=== PATIENT | female | born 1955 | race Caucasian/White ===

== ENCOUNTER → 2016-10-13 | Outpatient (CLI) | payer OTHER ==
[~2016-10-13] MED LIST: CALC-343 PO; OXYC1TAB3 PO; PRM/3 PO
--- NOTE | 2016-10-13 10:16 | DIAGNOSTIC IMAGING REPORT ---
RIGHT THIGH ULTRASOUND CLINICAL HISTORY: Right thigh mass. COMPARISON STUDY: None. FINDINGS: Within the right medial thigh at the patient's palpable abnormality there is a 3.3 x 2.6 x 2.4 cm solid and cystic circumscribed mass. This appears to be intramuscular. The proximal and distal ends of the lesion are surrounded by fat. 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 No surrounding fluid collections. IMPRESSION: A 3.3 x 2.8 x 2.4 cm intramuscular mass within the right medial thigh. This favors a peripheral nerve sheath tumor. However, a sarcoma could also have a similar appearance. Complete surgical excision is recommended. Electronically signed by: Goarn Horn M.D. 10/13/2016 10:14 AM Dictated Date/Time: 10/13/2016 10:08 AM
== END | disposition home or self-care (01) ==
LOC: C.ULTR 09:39
PROVIDERS: ATTEND Plastic Surgery
DX: M79.9 Soft tissue disorder, unspecified (principal)

== ENCOUNTER → 2016-10-22 | Outpatient (CLI) | payer OTHER ==
[~2016-10-22] MED LIST changes: +GADAVIST IV PRN
--- NOTE | 2016-10-22 12:10 | DIAGNOSTIC IMAGING REPORT ---
MRI RIGHT THIGH COMBO CLINICAL HISTORY: Palpable lump in the right thigh of 4 years duration. COMPARISON STUDY: Ultrasound of the right thigh dated 10/13/2016. TECHNIQUE: MRI of the right thigh is performed utilizing various T1 and T2-weighted sequences in the axial, sagittal, and coronal planes. Contrast-enhanced sequences are acquired following the IV administration of 5.5 cc of Gadavist. There is a 3.9 x 2.9 x 2.5 cm T1 hypointense, T2 hyperintense, and heterogeneously enhancing mass lesion identified in the medial mid thigh. This is superficial and medial to the vastus medialis muscle. No additional similar-appearing mass lesions are identified. There is no right pelvic sidewall or right inguinal lymphadenopathy. The musculature of the thigh is normal in bulk and signal intensity. The femur is normal in appearance. The femoral vessels are patent. IMPRESSION: There is a 3.9 cm mass lesion in the medial right thigh as detailed above. 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 Complete surgical resection is advised. Electronically signed by: Jemal Moon M.D. 10/22/2016 12:09 PM Dictated Date/Time: 10/22/2016 12:03 PM
== END | disposition home or self-care (01) ==
LOC: C.MRI 09:42
PROVIDERS: ATTEND Plastic Surgery
DX: M79.9 Soft tissue disorder, unspecified (principal)

== ENCOUNTER → 2016-10-23 | Outpatient (CLI) | payer OTHER ==
[~2016-10-23] MED LIST changes: -GADAVIST IV PRN
[2016-10-23 13:33] LABS: BASO % 0.6 %; BASO ABS # 0.03 K/uL (0-0.2); COMPLETE YES; EOS % 2.7 %; LYMPH ABS # 1.72 K/uL (1.2-3.4); MEAN CELL VOLUME 86.6 fL (80-100); MEAN CORPUSCULAR HEMOGLOBIN 30.5 pg (25-34); MEAN CORPUSCULAR HGB CONC 35.3 g/dl (32-36); MEAN PLATELET VOLUME 12.1 fL (7.4-10.4); NEUT % 55.7 %; PLATELET COUNT 236 K/uL (130-400); RED BLOOD COUNT 4.62 M/uL (4.2-5.4); WHITE BLOOD COUNT 4.78 K/uL (4.8-10.8)
[2016-10-23 14:23] LABS: ALB/GLOB RATIO 1.3 (0.9-2); ALKALINE PHOSPHATASE 59 U/L (45-117); ALT/SGPT 23 U/L (12-78); AST/SGOT 20 U/L (15-37); BLOOD UREA NITROGEN 17 mg/dl (7-18); BUN/CREATININE RATIO 25.7 (10-20); CALCIUM 9.1 mg/dl (8.5-10.1); CARBON DIOXIDE 29 mmol/L (21-32); CHLORIDE 107 mmol/L (98-107); CHOLESTEROL 205 mg/dl (0-200); CREATININE 0.68 mg/dl (0.60-1.20); GLUCOSE 82 mg/dl (70-99); HDL CHOLESTEROL 101 mg/dl; LDL CHOLESTEROL CALCULATED 94 mg/dl; POTASSIUM 4.1 mmol/L (3.5-5.1); SODIUM 143 mmol/L (136-145); TRIGLYCERIDES 50 mg/dl (0-150); VERY LOW DENSITY LIPOPROT CALC 10 mg/dl
== END | disposition home or self-care (01) ==
LOC: C.LABSPEC 12:50
PROVIDERS: ATTEND Internal Medicine
DX: E78.5 Hyperlipidemia, unspecified (principal); R53.83 Other fatigue; E55.9 Vitamin D deficiency, unspecified

== ENCOUNTER → 2016-10-26 | Outpatient (CLI) | payer OTHER ==
--- NOTE | 2016-10-26 10:26 | DIAGNOSTIC IMAGING REPORT ---
Ultrasound right lower leg RIGHT EXTREMITY NONVASCULAR LIMITED CLINICAL HISTORY: R LOWER Leg, mass UPPER THIRD Right mass. Nodule. TECHNIQUE: Ultrasound COMPARISON STUDY: None FINDINGS: Correlation is made with MRI as well as ultrasound evaluation of the right thigh. Current evaluation of the right lower leg shows no well-defined mass or collection. IMPRESSION: No evidence for well-defined mass or collection specifically involving the right lower leg and calf Electronically signed by: Brady Dean M.D. 10/26/2016 10:25 AM Dictated Date/Time: 10/26/2016 10:23 AM
== END | disposition home or self-care (01) ==
LOC: C.ULTR 09:36
PROVIDERS: ATTEND Internal Medicine
DX: R22.41 Localized swelling, mass and lump, right lower limb (principal)

== ENCOUNTER → 2017-04-27 | Outpatient (CLI) | payer OTHER ==
[~2017-04-27] MED LIST changes: -OXYC1TAB3 PO
== END | disposition home or self-care (01) ==
LOC: C.LABSPEC 16:57 → C.PATHSPEC 16:58
PROVIDERS: ATTEND Nurse Practitioner Adult Health
DX: R31.0 Gross hematuria (principal)

== ENCOUNTER → 2017-05-03 | Outpatient (CLI) | payer OTHER ==
[~2017-05-03] MED LIST changes: +OPTIRAY 320 IV PRN
--- NOTE | 2017-05-03 08:53 | DIAGNOSTIC IMAGING REPORT ---
CT ABD/PELVIS COMBO CLINICAL HISTORY: Gross hematuria COMPARISON STUDY: 03/18/2016 TECHNIQUE: Unenhanced images were obtained through the abdomen and pelvis. The patient was injected with 50 cc of Optiray 320. After 5 minute delay, the patient is rescanned in a dynamic helical fashion during intravenous administration of additional 70 cc Optiray 320 A dose lowering technique was utilized adhering to the principles of ALARA. CT DOSE: 783.70 mGycm FINDINGS: Lower chest: There are mild dependent atelectatic changes Liver: The contrast-enhanced liver is normal in size, contour, and attenuation. There is no intrahepatic biliary ductal dilatation. The hepatic veins and portal veins are patent. Gallbladder: Likely surgically absent Spleen: Normal in size and attenuation. Pancreas: Unremarkable. Adrenal glands: Unremarkable. Kidneys: There are in numerable bilateral intrarenal calculi. No ureteral or bladder calculi are visualized. There is a 6 mm upper pole right renal cyst. There is a 9 mm lower pole hyperdense right renal cyst. There is a 5 mm left renal cyst. No collecting system lesions are visualized. There is a small "kink within the proximal right ureter which is felt to explain the mild proximal right ureteral irregularity. Bowel: There are no transition zones indicate bowel obstruction. There is colonic diverticulosis. There are no acute peridiverticular inflammatory changes. The appendix appears normal. Peritoneum: There is no intraperitoneal free air or abdominal ascites. Vasculature: The abdominal aorta is normal in course and caliber. Adenopathy: None. Pelvic viscera: The uterus appears surgically absent Skeletal structures: No destructive osseous lesions are seen. IMPRESSION: 1. Bilateral nephrolithiasis. No ureteral or bladder calculi identified 2. No uroepithelial lesions identified 3. Subcentimeter renal cysts including a 9 mm lower pole hyperdense right renal cyst Electronically signed by: Tommy Rodriguez M.D. 05/03/2017 8:52 AM Dictated Date/Time: 05/03/2017 8:42 AM
== END | disposition home or self-care (01) ==
LOC: C.CTS 08:11
PROVIDERS: ATTEND Nurse Practitioner Adult Health
DX: R31.0 Gross hematuria (principal)

== ENCOUNTER → 2017-05-14 | Outpatient (CLI) | payer OTHER ==
[~2017-05-14] MED LIST changes: -OPTIRAY 320 IV PRN
== END | disposition home or self-care (01) ==
LOC: C.LAB1850 12:17
PROVIDERS: ATTEND Internal Medicine Nephrology
DX: N20.0 Calculus of kidney (principal)

== ENCOUNTER → 2017-08-10 | Outpatient (CLI) | payer OTHER ==
--- NOTE | 2017-08-10 15:11 | MAMMOGRAPHY REPORT ---
BILATERAL DIGITAL SCREENING MAMMOGRAM TOMOSYNTHESIS WITH CAD: 08/10/2017 CLINICAL HISTORY: Routine screening. Patient has no complaints. TECHNIQUE: Breast tomosynthesis in addition to standard 2D mammography was performed. Current study was also evaluated with a Computer Aided Detection (CAD) system. COMPARISON: Comparison is made to exams dated: 08/07/2016 mammogram, 08/05/2015 mammogram, 08/02/2014 mammogram, 08/01/2013 mammogram, 07/18/2012 mammogram, and 07/15/2011 mammogram - [facility]. BREAST COMPOSITION: There are scattered areas of fibroglandular density in both breasts. FINDINGS: There are is a stable benign grouping of microcalcifications in the 12:00 anterior right b reast, which appears similar on all available prior mammograms dating back to at least 04/19/2008, th erefore likely benign. No new suspicious mass, architectural distortion or cluster of microcalcificat ions is seen. IMPRESSION: ACR BI-RADS CATEGORY 2: BENIGN There is no mammographic evidence of malignancy. A 1 year screening mammogram is recommended. The pa tient will receive written notification of the results. Approximately 10% of breast cancers are not detected with mammography. A negative mammographic report should not delay biopsy if a clinically suggestive mass is present. Bee Mai M.D. ay/:08/10/2017 11:05:41 [employer]: Anabella TAYLOR)(Andrew)(BD), [facility] letter sent: Normal 1/2 BI-RADS Code: ACR BI-RADS Category 2: Benign
== END | disposition home or self-care (01) ==
LOC: C.MAMM 09:00
PROVIDERS: ATTEND Obstetrics & Gynecology
DX: Z12.31 Encounter for screening mammogram for malignant neoplasm of breast (principal)

== ENCOUNTER → 2017-08-23 | Outpatient (CLI) | payer OTHER ==
--- NOTE | 2017-08-23 17:50 | DIAGNOSTIC IMAGING REPORT ---
KUB CLINICAL HISTORY: 62 years-old Female presenting with GROSS HEMATURIA. TECHNIQUE: Single supine view of the abdomen was obtained. COMPARISON: CT from 05/03/2017 and plain radiograph from 09/22/2016. FINDINGS: Moderate stool burden primarily in the left colon. No bowel obstruction. No gross pneumoperitoneum. A metallic foreign body again projects over the left mid abdomen, better localized on prior CT. Allowing for the presence of gas and stool, calcifications project over the kidneys bilaterally consistent with nephrolithiasis. These are similar in distribution to the prior exam. No calcifications along the courses of the ureters are apparent. Osseous structures normal. IMPRESSION: 1. Bilateral nephrolithiasis similar to prior exam. No radiographic evidence of ureteral calculi. Electronically signed by: Edward Zhang M.D. 08/23/2017 5:49 PM Dictated Date/Time: 08/23/2017 5:47 PM
== END | disposition home or self-care (01) ==
LOC: C.RAD 17:24
PROVIDERS: ATTEND Nurse Practitioner Adult Health
DX: R31.0 Gross hematuria (principal); N20.0 Calculus of kidney

== ENCOUNTER → 2017-10-25 | Outpatient (CLI) | payer OTHER ==
--- NOTE | 2017-10-25 09:07 | DIAGNOSTIC IMAGING REPORT ---
MRI OF THE LEFT KNEE WITHOUT CONTRAST CLINICAL HISTORY: Anterior medial left knee pain. COMPARISON STUDY: Left tibia and fibula radiographs September 19, 2013. TECHNIQUE: Utilizing a 1.5 [place] magnet and dedicated coil, multiplanar, multiecho imaging of the left knee was performed without intravenous or intraarticular contrast. FINDINGS: Alignment of the left knee is anatomic. Extensor mechanism is intact. The cruciate and collateral ligaments are intact. There is no lateral meniscal tear. There is intrasubstance signal within the posterior horn and body of the medial meniscus. There is also oblique linear signal within the body and posterior horn of the medial meniscus which likely extends to the tibial articular surface. This suggests an oblique medial meniscal tear. No mass or fluid collection is identified. There is no suspicious marrow replacement. Note is made of moderate chondrosis of the medial trochlear cartilage. There is mild to moderate chondrosis of the patellar cartilage. Otherwise, minimal chondrosis within the medial and lateral compartments is noted. IMPRESSION: 1. Findings suggestive of an oblique tear within the body and posterior horn the medial meniscus. The majority of the signal abnormality is intrasubstance however probable extension to tibial articular surface favors an associated meniscal tear. 2. 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 3. Intact cruciate and collateral ligaments. Electronically signed by: Pan Chauhan M.D. 10/25/2017 9:06 AM Dictated Date/Time: 10/25/2017 8:56 AM
== END | disposition home or self-care (01) ==
LOC: C.MRIBC 08:06
PROVIDERS: ATTEND Orthopaedic Surgery
DX: M25.562 Pain in left knee (principal); M22.2X2 Patellofemoral disorders, left knee

== ENCOUNTER 2018-01-29 09:42 | Emergency (ER) | payer OTHER ==
[~2018-01-29] VITALS: Ht 152.4 cm; Wt 56.0 kg
[2018-01-29 09:45] VITALS: TEMP 37.4; Ht 152.4 cm; Wt 56.0 kg
--- NOTE | 2018-01-29 10:10 | EMERGENCY ROOM VISIT NOTE ---
History Report prepared by April: Kj Baird Under the Supervision of: Dr. Sanford Garrett D.O. First contact with patient: 10:03 Chief Complaint: FLU LIKE SX Stated Complaint: FEVER,BODY ACHES History of Present Illness The patient is a 62 year old female who presents to the Emergency Room with complaints of worsening flu-like symptoms for the past 3 days. Patient states that she has a fever, productive cough, body aching, chills, sneezing, and post- nasal drip. She states that her fever has been intermittent with a temperature last night of 102.9. Patient states that she has used Tylenol and Advil to try and relieve the symptoms. She states her last dose of Tylenol was last night. She denies urinary symptoms, nausea, vomiting, rash, chest pain, leg pain, or leg swelling. Patient denies using any current medications. Source of History: patient Onset: 3 days ago Position: other (Global) Timing: worsening Modifying Factors (Relieving): tylenol, other (Advil) Associated Symptoms: + fevers, + chills, + cough (Productive), No chest pain , No nausea, No vomiting, No urinary symptoms, No rash Note: Patient has body aching and post-nasal drip. Review of Systems See HPI for pertinent positives & negatives. A total of 10 systems reviewed and were otherwise negative. Past Medical & Surgical Medical Problems: (1) Cystic Kidney Disease, Unspecified (2) Disc displacement, lumbar (3) Diverticulosis Colon (W/O Ment Of Hemorrhage) (4) Kidney stones (5) Laceration of lower extremity Family History Kidney stones Social History Smoking Status: Never Smoker Alcohol Use: none Drug Use: none Marital Status: Housing Status: lives with significant other Occupation Status: employed Current/Historical Medications Scheduled Estrogens, Conjugated (Premarin), 0.3 MG PO HS Oseltamivir (Tamiflu), 75 MG PO BID Allergies Coded Allergies: Codeine (Verified Adverse Reaction, Unknown, GI PAIN, 01/29/18) Methadone (Verified Adverse Reaction, Unknown, "UNSURE, COULD NOT WALK", ) Physical Exam Vital Signs Date Time Temp Pulse Resp B/P (MAP) Pulse Ox O2 Delivery O2 Flow Rate FiO2 01/29/18 11:27 80 16 138/79 99 01/29/18 09:45 37.4 86 20 149/86 98 Room Air Physical Exam GENERAL: Patient is awake, alert, and in no acute distress. Patient is resting comfortably and showing no signs of anxiety EYES: The conjunctivae are clear. The pupils are round and reactive. EARS, NOSE, MOUTH AND THROAT: Minimal clear rhinorrhea noted bilaterally. Post- oropharynx is clear. The nose is without any evidence of any deformity. Mucous membranes are moist tongue is midline. NECK: The neck is nontender and supple. RESPIRATORY: Lungs sound scattered with minimal rhonchi noted. No tachypnea or conversational dyspnea noted. CARDIOVASCULAR: Regular rate and rhythm noted there no murmurs rubs or gallops normal S1 normal S2 GASTROINTESTINAL: The abdomen is soft. Bowel sounds are present in all quadrants. Abdomen is nontender MUSCULOSKELETAL/EXTREMITIES: There is no evidence of gross deformity full range of motion is noted in the hips and shoulders SKIN: There is no obvious evidence of any rash. There are no petechiae, pallor or cyanosis noted. NEUROLOGIC: Patient is awake alert and oriented x3. Medical Decision & Procedures ER Provider Diagnostic Interpretation: Radiology results as stated below per my review and radiologist interpretation: CHEST 2 VIEWS ROUTINE CLINICAL HISTORY: 62 years-old Female presenting with cough. TECHNIQUE: PA and lateral views of the chest were obtained. COMPARISON: 03/24/2016. FINDINGS: Cardiomediastinal silhouette normal. Lungs and pleural spaces clear. Osseous structures normal. Upper abdomen normal. IMPRESSION: 1. No acute cardiopulmonary disease. Electronically signed by: Edward Zhang M.D. 01/29/2018 10:36 AM Laboratory Results Test 01/29/18 10:15 Influenza Type A Antigen Neg for Influ A (NEG) Influenza Type B Antigen POS for Influ B (NEG) Laboratory results per my review. ED Course 1004: The patient was evaluated in room B8. A complete history and physical examination were performed. 1043: I reassessed the patient and updated her on her findings. 1210: Upon reevaluation, the patient is resting comfortably. I discussed the results and treatment plan with her. She verbalized agreement of the treatment plan. She was discharged home. Medical Decision Prior records/ancillary studies reviewed. Triage Nursing notes reviewed. The patient's history was concerning for respiratory difficulties. Differential diagnosis: Etiologies such as infections, reactive airway disease, pneumonia, pneumothorax , COPD, CHF, cardiac ischemia, pulmonary embolism, musculoskeletal, gastrointestinal, as well as others were entertained. The patient is a 62-year-old female who presented to the emergency department for an evaluation of rhinorrhea and flulike symptoms. The patient had a cough. Her chest x-ray did not reveal any acute abnormality. She was found to have a positive flu swab. She was started on Tamiflu and encouraged to continue using Motrin and Tylenol for pain and drink plenty of clear liquids. Otherwise she was encouraged to call her family doctor to schedule a follow-up appointment but return to the emergency department immediately if symptoms change worsen or the need arises. Medication Reconcilliation Current Medication List: was personally reviewed by me Blood Pressure Screening Patient's blood pressure: Elevated blood pressure Blood pressure disposition: Elevated BP felt to be situational Impression Primary Impression: Influenza Scribe Attestation The scribe's documentation has been prepared under my direction and personally reviewed by me in its entirety. I confirm that the note above accurately reflects all work, treatment, procedures, and medical decision making performed by me. Departure Information Dispostion Home / Self-Care Prescriptions Oseltamivir (Tamiflu) 75 Mg Cap 75 MG PO BID, #10 CAP Prov: Sanford Garrett, DO 01/29/18 Referrals No Doctor, Assigned (PCP) Forms HOME CARE DOCUMENTATION FORM, IMPORTANT VISIT INFORMATION Patient Instructions ED Flu, My [facility] Additional Instructions Continue all medications as prescribed. Drink plenty clear liquids. Continue using Motrin and Tylenol for fever and body aches.
--- NOTE | 2018-01-29 10:38 | DIAGNOSTIC IMAGING REPORT ---
CHEST 2 VIEWS ROUTINE CLINICAL HISTORY: 62 years-old Female presenting with cough. TECHNIQUE: PA and lateral views of the chest were obtained. COMPARISON: 03/24/2016. FINDINGS: Cardiomediastinal silhouette normal. Lungs and pleural spaces clear. Osseous structures normal. Upper abdomen normal. IMPRESSION: 1. No acute cardiopulmonary disease. Electronically signed by: Edward Zhang M.D. 01/29/2018 10:36 AM Dictated Date/Time: 01/29/2018 10:36 AM
[2018-01-29 10:46] LABS: INFLUENZA B ANTIGEN POS for Influ B (NEG)
[2018-01-29] MEDS ORDERED: OSEL75CA12 PO (11:01)
[2018-01-29 11:27] VITALS: BP 138/79; PULSE 80; O2SAT 99
== END 2018-01-29 11:28 | disposition home or self-care (01) ==
LOC: C.EDB 09:43
DX: J11.1 Influenza due to unidentified influenza virus with other respiratory manifestations (principal); R03.0 Elevated blood-pressure reading, without diagnosis of hypertension; Z79.3 Long term (current) use of hormonal contraceptives; Z88.6 Allergy status to analgesic agent

== ENCOUNTER → 2018-04-29 | Outpatient (CLI) | payer OTHER ==
[~2018-04-29] MED LIST changes: -CALC-343 PO; +OSEL75CA12 PO
--- NOTE | 2018-04-29 17:30 | DIAGNOSTIC IMAGING REPORT ---
KUB CLINICAL HISTORY: Nephrolithiasis. FINDINGS: 2 AP supine abdominal radiographs are compared to study dated 08/23/2017 and correlated with abdominal CT dated 05/03/2017. There is a nonobstructed abdominal bowel gas pattern. Mild colonic fecal retention is observed. A linear metallic foreign body is again seen in the left mid abdomen. There are numerous tiny nonobstructing renal calculi seen bilaterally. These measure up to 3 mm. There is no radiographic evidence of ureterolithiasis. The skeletal structures are osteopenic. Mild degenerative change is noted in the lumbar spine. IMPRESSION: 1. There are numerous small bilateral nonobstructing renal calculi, not appreciably changed from previous. 2. A linear metallic foreign body is again noted in the left mid abdomen. Electronically signed by: Jemal Moon M.D. 04/29/2018 5:29 PM Dictated Date/Time: 04/29/2018 5:27 PM
== END | disposition home or self-care (01) ==
LOC: C.RAD 16:42
PROVIDERS: ATTEND Urology
DX: N20.0 Calculus of kidney (principal)

== ENCOUNTER 2019-01-24 19:52 | Inpatient (IN) ==
[2019-01-24] MEDS ORDERED: VANCOMYCIN CONSULT ACTIVE PRN (20:28)
[2019-01-24] MEDS ORDERED: VANCOMYCIN HCL 1,500 MG in SODIUM CHLORIDE 0.9% 500 ML IV ONE (20:28)
[2019-01-24] MEDS ORDERED: AMPICILLIN/SULBACTAM SOD 3,000 MG in 0.9 % SODIUM CHLORIDE 100 ML IV STA (20:28)
[2019-01-24] MEDS ORDERED: SODIUM CHLORIDE 0.9% 1000ML 1,000 ML IV SCH (20:30)
[2019-01-24 21:02] LABS: Basophils # (auto) 0.03 K/uL (0-0.2); Basophils % (auto) 0.4 %; Eosinophils # (auto) 0.16 K/uL (0-0.5); Eosinophils % (auto) 1.9 %; Hematocrit (blood only) 36.7 % (37-47); Hemoglobin 13.6 g/dL (12.0-16.0); Immature Granulocytes # (auto) 0.01 K/uL (0.00-0.02); Immature Granulocytes % (auto) 0.1 %; Lymphocytes # (auto) 1.71 K/uL (1.2-3.4); Lymphocytes % (auto) 20.7 %; Mean Corpuscular Hgb Conc 37.1 g/dL (32-36); Mean Corpuscular Volume 85.5 fL (80-100); Mean Platelet Volume 11.2 fL (7.4-10.4); Monocytes # (auto) 0.52 K/uL (0.11-0.59); Monocytes % (auto) 6.3 %; Neutrophils # (auto) 5.82 K/uL (1.4-6.5); Neutrophils % (auto) 70.6 %; Platelet Count 229 K/uL (130-400); RDW Coefficient of Variation 12.9 % (11.5-14.5); Red Blood Count 4.29 M/uL (4.2-5.4); White Blood Count 8.25 K/uL (4.8-10.8)
[2019-01-24 21:17] LABS: Calcium 8.8 mg/dl (8.5-10.1); Creatinine Clr Calc Pharmacy 75.3 ml/min; Est GFR (African American) 112.3; Est GFR (Non-African American) 96.9; Potassium 3.6 mmol/L (3.5-5.1)
--- OUTSIDE RECORDS SUMMARY | 2019-01-24 22:08 | External Medical Summary | Continuity of Care Document ---
:1955 Author Name Warren Harper, Provider Address Unavailable Unavailable , Care Team Providers Name Role Phone Ger Harper, Jordyn Kurtz Unavailable [email or web address] Marcy Harper Unavailable [email or web address] Unavailable Unavailable Unavailable Unavailable Unavailable Problems Menopausal symptoms (627.2) (N95.1) Migraines (346.90) (G43.909) Colicky epigastric pain (789.06) (R10.13) Nephrolithiasis (592.0) (N20.0) Encounter for routine gynecological examination (V72.31) (Z0 1.419) Allergies and Adverse Reactions codeine (Allergy) Reaction: Nausea Tigan (Allergy) Medications Premarin 0.3 MG Oral Tablet; TAKE 1 TABLET DAILY DI RECTED. Leroy Cyr Start: 28-Aug-2015 Quantity: 90 Refills: 3 TheraLith XR TABS; TAKE 2 TABLET Twice daily Refills: 0 Vitamin D 2000 UNIT Oral Tablet; Take 1 tablet daily Refills: 0 hydroCHLOROthiazide 25 MG Oral Tablet; TAKE 1 TABLET D AILY. Leroy Vidal Amy Start: 18-Jul-2018 Quantity: 30 Refills: 11 Procedures Renal Panel Date: 11-Jan-2019 History of Total Abdominal Hysterectomy Status: Completed History of Hernia Repair Status: Complet ed History of Wedge Resection Of Lung Statu s: Completed History of Salpingectomy Status: Complet ed History of Dilation And Curettage Status : Completed History of Cholecystectomy Status: Compl eted History of Colonoscopy (Fiberoptic) Sigmoid Colon Status: Completed History of Lymphatic Surgery Status: Com pleted History of Salpingo-oophorectomy Bilateral Status: Completed History of Back Surgery Status: Complete d History of Hysterectomy Status: Complete d History of Renal Lithotripsy Status: Com pleted Immunizations DTaP On: 08-Sep-2013 Influenza On: 09-Jul-2014 Family History Mother Family history of diabetes mellitus (V18.0) (Z83.3) Status: Active Family history of hypertension (V17.49) (Z82.49) Status: Act nathanael Family history of hypercholesterolemia (V18.19) (Z83.42) Sta tus: Active Family history of kidney stones (V18.69) (Z84.1) Status: Belia huffman Father Family history of diabetes mellitus (V18.0) (Z83.3) Status: Active Family history of cardiac disorder (V17.49) (Z82.49) Status: Active FH: kidney cancer (V16.51) (Z80.51) Status: Active Family history of kidney stones (V18.69) (Z84.1) Status: Belia huffman Grandfather Family history of diabetes mellitus (V18.0) (Z83.3) Status: Active Social History - Smoking Status Never smoker Plan of Treatment Planned Encounters Appointment; Amy Vidal M.D. Start: 15-Jan-2020 10:45 Request Planned Observations Planned Goals not documented Results No Known Results Results not documented Vital Signs 11-Jan-2019 13:57 Systolic 122 mm[Hg] Comments: Location: RUE; Position: Sitting Diastolic 78 mm[Hg] Comments: Location: RUE; Position: Sitting Weight 123.375 lb BSA Calculated 1.52 m2 BMI Calculated 24.1 kg/m2 Heart Rate 70 /min Comments: Location: R Radial; Quality: Normal Encounters Appointment; Amy Vidal M.D. 11-Jan-2019 13:45 Encounter Diagnosis: Problem not documented Appointment; Amy Vidal M.D. 18-Jul-2018 10:45 Encounter Diagnosis: Problem not documented Appointment; Ryder Taveras M.D. 03-May-2018 9:45 Encounter Diagnosis: Problem not documented Appointment; Jordyn Cyr M.D. 22-Nov-2017 10:00 Encounter Diagnosis: Problem not documented Appointment; Amy Vidal M.D. 14-Jul-2017 9:15 Encounter Diagnosis: Problem not documented Appointment; Amy Vidal M.D. 14-May-2017 11:15 Encounter Diagnosis: Problem not documented Appointment; Ryder Taveras M.D. 11-May-2017 9:30 Encounter Diagnosis: Problem not documented Appointment; Urology, [facility] 7 11-May-2017 9:20 Encounter Diagnosis: Problem not documented Appointment; Vianca Rodriguez CRNP 27-Apr-2017 15:00 Encounter Diagnosis: Problem not documented Appointment; Amy Vidal M.D. 15-Jan-2020 10:45 Encounter Diagnosis: Problem not documented
--- NOTE | 2019-01-25 00:48 | History & Physical Report ---
Date of Service January 25, 2019 Assessment & Plan (1) Wound infection, posttraumatic: 63 yo F with recent history of left hand laceration s/p suturing on 01/14 presenting with pain, swelling, purulent green discharge from wound found on exam, afebrile with no leukocytosis on arrival. Admit to Med surg - no evidence of systemic infection - Given Vancomycin, Unasyn in ED - Given green purulent discharge per ED, will also cover for pseudomonas - Start Vancomycin, Cefepime on admission - given post-traumatic numbness tingling of the 2nd 3rd digits, will order MRI hand for further evaluation (2) Laceration: as above (3) Hypertension: BP controlled Continue HCTZ History of Present Illness Chief Complaint: Wound infection Primary Care Provider: Nicolas Bhat MD 63 yo F with HTN, GERD recently admitted for Hand laceration 01/14 to left hand with a knife from cutting [place]. Patient received 5-0 nylon sutures x 3 in addition to Adacel injection. She was not sent home on antibiotics. Patient presents today with suspected infection wound. 2 days ago, patient reports worsening pain, swelling. She placed on ice. Patient had not reported drainage from wound prior to arrival. She does report numbness, tingling of the the left index finger and middle finger. She also denies fever, chills. In the ED, patient was afebrile without leukocytosis. While suture was being removed, green purulent drainage was observed. She was given IV NS bolus, Vancomycin and Unasyn in ED. Currently she denies pain, She does report numbness tingling in left index and middle finger. Allergies Allergy/AdvReac Type Severity Reaction Status Date / Time methadone AdvReac Severe "UNSURE, Verified 01/24/19 21:06 COULD NOT WALK" codeine AdvReac Intermediate GI PAIN Verified 01/24/19 21:06 Home Medications Home Medications Medication Instructions Recorded Confirmed Type Unknown Anti Inflammatory Med 1 dose PO DIRECTED 01/24/19 01/24/19 History cholecalciferol (vitamin D3) 2,000 unit PO DAILY 01/24/19 01/24/19 History [Vitamin D3] conjugated estrogens [Premarin] 0.3 mg PO HS 01/24/19 01/24/19 History hydrochlorothiazide 25 mg PO DAILY 04/30/19 04/30/19 History vit B6-mag cit,oxid-potass cit 2 tab PO BID 01/24/19 01/24/19 History [Theralith XR] Past Med/Surg History Medical History Laceration (Acute) Disc displacement, lumbar (Chronic) Laceration of lower extremity (Resolved) Kidney stone (Acute) Kidney stones Influenza (Resolved) Left ureteral calculus (Acute) Family History Other No pertinent family history in first degree relatives Social History Preferred Language: Yakut Communication Ability: Effective 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 HEAD: normocephalic. EYES: PERRL, EOMI.vision is grossly intact. EARS: hearing grossly intact. NOSE: No nasal discharge. NECK: Neck supple, non-tender without lymphadenopathy CARDIAC: Normal S1 and S2. No S3, S4 or murmurs. Rhythm is regular LUNGS: Clear to auscultation and percussion without rales, rhonchi, wheezing or diminished breath sounds. ABDOMEN: Positive bowel sounds. Soft, nondistended, nontender. No guarding or rebound. No masses. MUSKULOSKELETAL: Left hand, palmar 1-1.5 cm laceration, wound s/p suture removal with some purruelnt discharge, surrounding swelling, no erythema normal client leader strength, + dec;d sensation 2nd digit, ulnar portion of 3rd digit LOWER EXTREMITY: no edema NEUROLOGICAL: CN II-XII intact grossly . moves extremities Results & Data Vital Signs (Past 12 Hours) Vital Signs Temp Pulse Pulse Resp BP BP Pulse Ox 01/24/19 23:30 80 16 115/67 94 01/24/19 23:00 87 18 122/79 95 01/24/19 22:43 86 20 119/70 97 01/24/19 21:47 79 20 139/73 99 01/24/19 19:56 36.5 C 85 16 121/73 97 Supervising Physician Co-Signing Physician Notes Attending addendum: I have physically seen this patient, have supervised the medical residents activities, and agree with the H&P unless as otherwise noted. Assessment and Plan: Cellulitis of left hand- Status post injury with knife on 01/14 while cutting an avocado. Work-up in ED on 01/14 included negative x-ray, and suturing of laceration. Patient reports numbness of second and third fingers on left hand immediately after injury. Has since developed significant erythema and tenderness, with green discharge expressed from wound today per ED. Additional swelling present today is affecting mobility and flexibility. Would order an MRI of the left hand to assess for possible nerve injury due to immediacy of sensation loss the day of the accident. No signs of compartment syndrome. Empiric treatment with vancomycin IV and cefepime IV. Follow wound culture and sensitivity. Consult orthopedics. Remainder of orders and notations as noted. Resident Activity Tracking Resident Involvement: Resident Care Provided Care Provided: Adult Hospital Medicine
--- NOTE | 2019-01-25 01:42 | Emergency Department Note ---
Entered by Robinson Baker acting as a scribe for Rick Barry DO History of Present Illness General Chief complaint: Infection, Wound Stated complaint: LEFT HAND SWELLING, INFECTION Source: patient History of Present Illness Provider complaint: Wound infection Onset (ago): day(s) (Last couple days) Location: upper extremity and left (Hand) Radiation: non-radiation Pain Consistency: + other (Worsening) Maximum Pain Intensity: 0 Relieved By: + none Exacerbated By: + none Associated symptoms: no fever/chills The patient is a 63 year old female who presents to the Emergency Room with complaints of worsening swelling and redness around a wound she has on her left hand. Her symptoms began to worsen over the past couple of days. The patient was here 10 days ago after a knife went through her left palm in between the bases of the 2nd and 3rd digits while she was trying to take the pit out of an avocado. While she was here she received a tetanus vaccine and had the laceration sutured but did not receive any antibiotics. The patient notes she noticed swelling as first but over the last couple of days the swelling has gotten worse and the area became red even with persistent icing. She also reports a tingly and numb sensation in the finger tips of her left hand. She also is having trouble bend her fingers around the affected area. The patient denies any fevers. Home Medications Home Medications Medication Instructions Recorded Confirmed Type Unknown Anti Inflammatory Med 1 dose PO DIRECTED 01/24/19 01/24/19 History cholecalciferol (vitamin D3) 2,000 unit PO DAILY 01/24/19 01/24/19 History [Vitamin D3] conjugated estrogens [Premarin] 0.3 mg PO HS 01/24/19 01/24/19 History hydrochlorothiazide 25 mg PO DAILY 01/24/19 01/24/19 History vit B6-mag cit,oxid-potass cit 2 tab PO BID 01/24/19 01/24/19 History [Theralith XR] Allergies Allergy/AdvReac Type Severity Reaction Status Date / Time methadone AdvReac Severe "UNSURE, Verified 01/24/19 21:06 COULD NOT WALK" codeine AdvReac Intermediate GI PAIN Verified 01/24/19 21:06 Past Med/Surg History Medical History Laceration (Acute) Disc displacement, lumbar (Chronic) Laceration of lower extremity (Resolved) Kidney stone (Acute) Kidney stones Influenza (Resolved) Left ureteral calculus (Acute) Family History Other No pertinent family history in first degree relatives Social History Preferred Language: Argentine Feels Safe at Home: Yes Smoking Status: Never smoker Review of Systems See HPI for pertinent positives & negatives. and A total of 10 systems reviewed and were otherwise negative Physical Exam Vital Signs Vital Signs - 24 hr 01/24/19 19:56 01/24/19 21:47 01/24/19 22:43 Temperature 36.5 C Temperature Source Oral Sepsis Recent Fever Within 48 Hours No Sepsis New/Unexplained Change in Mental Status No Sepsis Action Taken by Nursing No Action Required Pulse Rate 85 Pulse Rate [Finger] 79 86 Respiratory Rate 16 20 20 Respiratory Effort / Characteristics Non-Labored Spontaneous Respiratory Depth Normal Blood Pressure 121/73 Blood Pressure [Right Arm] 139/73 119/70 Blood Pressure Mean 89 Blood Pressure Mean [Right Arm] 95 86 Pulse Oximetry 97 99 97 Oxygen Delivery Method Room Air Room Air Room Air 01/24/19 23:00 01/24/19 23:30 01/25/19 00:00 Temperature Temperature Source Sepsis Recent Fever Within 48 Hours Sepsis New/Unexplained Change in Mental Status Sepsis Action Taken by Nursing Pulse Rate Pulse Rate [Finger] 87 80 86 Respiratory Rate 18 16 16 Respiratory Effort / Characteristics Respiratory Depth Blood Pressure Blood Pressure [Right Arm] 122/79 115/67 132/63 Blood Pressure Mean Blood Pressure Mean [Right Arm] 93 83 86 Pulse Oximetry 95 94 94 Oxygen Delivery Method Room Air Room Air Room Air 01/25/19 00:30 01/25/19 01:00 Temperature Temperature Source Sepsis Recent Fever Within 48 Hours Sepsis New/Unexplained Change in Mental Status Sepsis Action Taken by Nursing Pulse Rate Pulse Rate [Finger] 86 77 Respiratory Rate 18 16 Respiratory Effort / Characteristics Respiratory Depth Blood Pressure Blood Pressure [Right Arm] 125/69 120/75 Blood Pressure Mean Blood Pressure Mean [Right Arm] 87 90 Pulse Oximetry 94 96 Oxygen Delivery Method Room Air Room Air GENERAL: Sitting up in bed, alert, well appearing, well nourished, no distress, non-toxic EYE EXAM: normal conjunctiva. PERRL and EOM's grossly intact. OROPHARYNX: no exudate, no erythema, lips, buccal mucosa, and tongue normal and mucous membranes are moist NECK: supple, no nuchal rigidity, no adenopathy, non-tender LUNGS: Clear to auscultation. Normal chest wall mechanics HEART: no murmurs, S1 normal and S2 normal ABDOMEN: abdomen soft, non-tender, normo-active bowel, sounds, no masses, no rebound or guarding. BACK: Back is symmetrical on inspection and there is no deformity, no midline tenderness, no CVA tenderness. SKIN: no rashes and no bruising UPPER EXTREMITIES: 3cm laceration over the 1st and 2nd MCP. Significant mass, swelling and induration. 2 sutures removed and large amount of green, purulent discharge was noted. Erythema is tracking up the 2nd and 3rd digits. Significant pain with passive extension. Digits are held in flexion. Mild swelling of the dorsal aspect of the 2nd and 3rd MCP. LOWER EXTREMITIES: No pitting edema. NEURO EXAM: Normal sensorium, cranial nerves II-XII grossly intact, normal speech, no gross weakness of arms, no gross weakness of legs. Course ED COURSE: Vital signs were reviewed and were normal. The patients medical record was reviewed The above diagnostic studies were performed and reviewed. ED treatments and interventions as stated above. 2015: The patient was evaluated in room B08. A complete history and physical examination was performed. 2238: I spoke to Dr. Luke Moncada and he recommends bringing the patient in. 2245: Upon reevaluation, the patient is resting in bed. I discussed my findings with the patient and she understands and agrees with the treatment plan. 2358: I spoke to Dr. Alicia Kurtz [facility] Hospitalist about the patient's case and he is going to accept her for further evaluation. Based on the patients age, coexisting illnesses, exam and lab findings the decision to treat as an inpatient was made. The patient remained stable while under my care. The patient will be evaluated for further management. Consultations Consultation #1: I spoke to Dr. Luke Moncada and he recommends bringing the patient in. Time: 22:38 Consultation #2: I spoke to Dr. Vargas [facility] Hospitalist about the patient's case and he is going to accept her for further evaluation. Time: 23:58 Administered Medications Discontinued Medications Sodium Chloride (Nss 1000ml) 1,000 mls @ 999 mls/hr IV .Q1H1M OMID Stop: 01/24/19 21:30 Last Infusion: 01/24/19 22:40 Dose: 0 mls/hr Documented by: [id number] Admin: 01/24/19 21:23 Dose: 999 mls/hr Documented by: [id number] Vancomycin HCl 1,500 mg/ (Sodium Chloride) 530 mls @ 200 mls/hr IV NOW ONE; Protocol Stop: 01/24/19 23:06 Last Infusion: 01/25/19 00:47 Dose: 0 mls/hr Documented by: [id number] Infusion: 01/24/19 22:40 Dose: 200 mls/hr Documented by: [id number] Infusion: 01/24/19 21:29 Dose: 0 mls/hr Documented by: [id number] Admin: 01/24/19 21:23 Dose: 200 mls/hr Documented by: [id number] Ampicillin Sodium/Sulbactam Sodium 3,000 mg/ Sodium Chloride 108 mls @ 200 mls/hr IV NOW STA; Protocol Stop: 01/24/19 21:00 Last Infusion: 01/24/19 22:40 Dose: 0 mls/hr Documented by: [id number] Admin: 01/24/19 21:23 Dose: 200 mls/hr Documented by: [id number] Medical Decision Making Differential Diagnosis Differential diagnosis includes etiologies such as cellulitis, abscess, MRSA infection, DVT, necrotizing fasciitis, dermatitis, drug eruption, as well as others were entertained. Medical Records Attestation: I reviewed the patient's medical records. Home Medications Current Medication List: was personally reviewed by me Laboratory Data Attestation: I reviewed the patient's lab results. Result diagrams: 01/24/19 20:43 01/24/19 20:43 Lab Results 01/24/19 01/24/19 Range/Units 20:43 20:43 WBC 8.25 (4.8-10.8) K/uL RBC 4.29 (4.2-5.4) M/uL Hgb 13.6 (12.0-16.0) g/dL Hct 36.7 L (37-47) % MCV 85.5 (80-100) fL MCH 31.7 (25-34) pg MCHC 37.1 H (32-36) g/dL RDW Std Deviation 40.0 (36.4-46.3) fL RDW Coeff of Dc 12.9 (11.5-14.5) % Plt Count 229 (130-400) K/uL MPV 11.2 H (7.4-10.4) fL Immature Gran % (Auto) 0.1 % Neut % (Auto) 70.6 % Lymph % (Auto) 20.7 % [place] % (Auto) 6.3 % Eos % (Auto) 1.9 % Baso % (Auto) 0.4 % Immature Gran # (Auto) 0.01 (0.00-0.02) K/uL Neut # (Auto) 5.82 (1.4-6.5) K/uL Lymph # (Auto) 1.71 (1.2-3.4) K/uL [place] # (Auto) 0.52 (0.11-0.59) K/uL Eos # (Auto) 0.16 (0-0.5) K/uL Baso # (Auto) 0.03 (0-0.2) K/uL Sodium 142 (136-145) mmol/L Potassium 3.6 (3.5-5.1) mmol/L Chloride 108 H (98-107) mmol/L Carbon Dioxide 28 (21-32) mmol/L Anion Gap 6.0 (3-11) BUN 23 H (7-18) mg/dl Creatinine 0.59 L (0.6-1.2) mg/dl Est Cr Clr Drug Dosing 75.3 ml/min Est GFR ( Amer) 112.3 Est GFR (Non-Af Amer) 96.9 BUN/Creatinine Ratio 38.0 H (10-20) Glucose 94 (70-99) mg/dl Calcium 8.8 (8.5-10.1) mg/dl Blood Pressure Blood Pressure Findings: Normal blood pressure MDM Narrative Patient is a 63-year-old female with a through and through laceration on her left hand 10 days ago. She had 4 sutures placed one on the posterior aspect of 3 on the anterior aspect/palmar aspect. Removed 2 sutures and removed a large amount of purulent green drainage. Labs were obtained vitals were unremarkable. Labs showed no significant leukocytosis or anemia. BMP was unremarkable. Cultured wound. Discussed with orthopedics. Patient was given IV Unasyn and vancomycin. Discussed with the hospitalist and patient was admitted for further work-up as may eventually need a washout. Impression & Plan Cellulitis of hand Discharge Plan Visit Data Chief Complaint: Infection, Wound Stated Complaint: LEFT HAND SWELLING, INFECTION ED Provider: Rick Barry Discharge Problem: Cellulitis of hand Patient Disposition: Being Evaluated by Hospitalist Forms Stand Alone Forms: My [facility] Prescriptions Prescriptions: No Action hydrochlorothiazide 25 mg Tablet 25 mg PO DAILY RF: 0 Premarin 0.3 mg Tablet 0.3 mg PO HS RF: 0 cholecalciferol (vitamin D3) [Vitamin D3] 2,000 unit Capsule 2,000 unit PO DAILY RF: 0 Theralith XR 3.75-45-45-49.5 mg Tablet Extended Release 2 tab PO BID RF: 0 Unknown Anti Inflammatory Med 1 dose PO DIRECTED RF: 0 Referrals Referrals: Nicolas Bhat MD [Primary Care Provider] - The scribe's documentation has been prepared under my direction and personally reviewed by me in its entirety. I confirm that the note above accurately reflects all work, treatment, procedures, and medical decision making performed by me.
[2019-01-25] MEDS ORDERED: GADOBUTROL 65ML VIAL IV PRN (04:05)
[2019-01-25] MEDS ORDERED: ACETAMINOPHEN 325 MG TAB PO PRN ×2 (05:35)
[2019-01-25] MEDS ORDERED: VANCOMYCIN HCL 1,000 MG in SODIUM CHLORIDE 0.9% 250 ML IV SCH (05:35)
[2019-01-25] MEDS ORDERED: VANCOMYCIN CONSULT ACTIVE PRN (05:35)
[2019-01-25] MEDS ORDERED: ONDANSETRON INJ 2 MG/ML 2 ML VIAL IV PRN (05:35)
[2019-01-25] MEDS: CEFEPIME 1,000 MG in SYRINGE 0 ML IV SCH ×3 (06:33→21:50)
--- NOTE | 2019-01-25 07:15 | Magnetic Resonance Report ---
MRI OF THE LEFT HAND WITH AND WITHOUT CONTRAST CLINICAL HISTORY: Wound laceration with infection, sensation loss. COMPARISON STUDY: Left hand radiographs January 14, 2019. TECHNIQUE: Utilizing a 1.5 [place] magnet and dedicated coil, multiplanar, multiecho imaging of the lef t hand was performed pre and postcontrast administration. Intravenous injection of 5.5 cc of Gadavist was uneventful. FINDINGS: Alignment of the left hand is anatomic. There is no marrow edema to suggest osteomyelitis. No suspicious osseous lesion is noted. Markers were placed on the skin at site of wound. Note is made of a small 7 mm T2 hyperintense focus with suspected mild peripheral enhancement located along the p almar aspect of the bases of the second and third proximal phalanges. No additional fluid collections are identified on this examination. There is moderate adjacent edema and enhancement which suggest c ellulitis. IMPRESSION: 1. No evidence for osteomyelitis within the left hand. 2. Edema and enhancement within the soft tissues of the left hand deep to the wound consistent with c ellulitis. Associated 7 mm T2 hyperintense focus with mild peripheral enhancement which suggests a ti ny abscess located along the palmar aspect of the bases of the second and third proximal phalanges. Electronically signed by: Pan Chauhan M.D. 01/25/2019 7:14 AM
[2019-01-25] MEDS: hydroCHLOROthiazide 25 MG TAB PO SCH (09:34)
[2019-01-25] MEDS: VANCOMYCIN HCL 750 MG in SODIUM CHLORIDE 0.9% 250 ML IV SCH ×2 (09:35→21:50)
--- NOTE | 2019-01-25 11:05 | Pharmacy Report ---
Pharmacy Abx Dose Short Note - Date of Service January 25, 2019 - Assessment & Plan Assessment 63 year old F receiving vanc and cefepime for treatment of hand cellulitis. Infection was drained in the ED. Gram stain from wound cx positive for GPC. May be able to de-escalate upon speciation. Day # 2 of antimicrobial therapy. Plan Vancomycin * Loading dose of 1500mg X 1 given in the ED then 750mg q12 was initiated overnight to begin this morning * Continue dose of 750 mg IV every 12 hours * Goal trough level : 15 to 20 mcg/mL * Trough or random level ordered for: 01/26/19 @0948 Pharmacy will continue to follow and will adjust dose/frequency as necessary. Thank you.
--- NOTE | 2019-01-25 21:30 | Hospitalist Progress Note ---
Date of Service January 25, 2019 Assessment & Plan (1) Cellulitis of hand: LEFT HAND. improving slowly cont current IV abx but wound culture from original laceration site is growing staph will likely be able to stop cefepime soon (2) Wound infection, posttraumatic: cont current IV antibiotics. pain control. soak the hand per ortho recommendations (10 min TID). culture growing staph. (3) Laceration: left hand, webspace of 2nd/3rd digits. with superimposed infection now. growing staph. IV antibiotics. MRI with tiny abscess in this region (7mm). likely digital nerve injury leading to numbness. formal ortho consult requested with Dr Vance's group. adacel UTD. Subjective patient with ongoing numbness of lateral aspect of digit #2 of left hand and m edial aspect of digit #3 she has mild stiffness of 2nd finger due to localized swelling at base of 2nd digit no numbness of other fingers erythema/swelling of left hand dorsum is improved Review of Systems Constitutional: no fever and no chills Physical Exam Cardiovascular: radial pulse left wrist 2+ Musculoskeletal: no synovitis of any joint left hand Skin: left hand - mild erythema over dorsum of hand particularly near the 2nd/3rd fingers. wound site is near the webspace of 2nd/3rd fingers at base of those fingers. no purulent drainage during my exam some suture material is still present in this location cap refill < 2 seconds left hand Neurologic: mild numbness present over lateral aspect of 2nd digit and medial aspect of 3rd digit left hand with palpation strength of fingers 5/5 with all muscle groups (except - minimal weakness of 2nd digit due to pain/swelling) Results & Data Vital Signs (Past 12 Hours) Vital Signs Temp Pulse Resp BP Pulse Ox 01/25/19 15:38 36.8 C 89 19 125/70 97 Laboratory Results Laboratory Results - last 24 hr 01/25/19 01/25/19 14:22 14:22 ESR 3 C-Reactive Protein 1.13 H
[2019-01-25] MEDS: ESTROGENS, CONJUGATED 0.3 MG TAB PO SCH (21:50)
--- NOTE | 2019-01-25 21:52 | Consultation Report ---
DATE OF ADMISSION: 01/25/2019 CHIEF COMPLAINT: Left hand infection. HISTORY OF PRESENT ILLNESS: A 63-year-old right hand dominant female who sustained a left hand laceration from a knife on January 14 of this year. She was apparently cutting an avocado when the knife slipped and went to her hand. She was seen in the Emergency Room. She underwent a closure of this wound and was given tetanus. She was doing pretty well until just over this weekend when the pain started getting worse. She was just recently admitted early this morning through the ER. Apparently, they removed some stitches and got a little purulent drainage out of her hand. It is feeling a little bit better. It is a little bit less swollen since being admitted to hospital on IV antibiotics. I did culture this as well. PAST MEDICAL HISTORY: Past medical history as per the admission H and P. OBJECTIVE: VITAL SIGNS: Temperature is 36.8. Vital signs stable. EXTREMITIES: Examination of left hand reveals a palmar wound in this second webspace about a cm with some mild swelling around it. There is also a small dorsal wound with one stitch in it. There is also one remaining stitch in the palmar wound. She can nearly make a full fist. Slightly limited range of motion of the index finger more than the others. She does have decreased sensation in that webspace on both the ulnar side of the index finger as well as the radial side of the long finger. Just have some slight mild diffuse swelling up to her wrist and just a little bit of a red hue and mild cellulitis. She can nearly make a full fist. No signs of flexor tenosynovitis or septic tenosynovitis. LABORATORY DATA: Her white cell count is normal at 8.25. We did draw a sed rate and her sed rate is normal at 3. Her C-reactive protein is just slightly elevated at 1.13. X-RAYS: X-rays of the left knee were reviewed. No signs of foreign body. MRI: MRI is reviewed. Shows some mild diffuse edema in the hand. There is 1 small area with very tiny fluid collection on the palmar side of the hand. ASSESSMENT: A 63-year-old female 11 days out from a puncture wound of the left hand with a contaminated knife followed by wound closure with an infection. They obviously express some pus out of her hand previously. There is a very tiny fluid collection on MRI, which will most likely resolve with antibiotics. PLAN: I do not think there is any surgical indication at this point. She has no signs of septic tenosynovitis. There is a small little fluid collection which may be a small amount of pus, but I was able to express this some of that out this evening. I removed the remainder of her stitches. We will let this to drain if it needs to drain and continue the antibiotics. We will address to follow this over the next 24-48 hours. If it resolves or improves clinically, we can just watch her with the antibiotics. Obviously, we want to make sure we are covering this correctly and the cultures are showing some staph. We will make sure it is not MRSA. She is currently on vancomycin. We decided to observe this over the next 24-48 hours. If it does not show improvement, she may need a formal I&D, but I think that unlikely. She does have a digital nerve injury, particularly the ulnar side of the index finger. In this phase of infection, I do not think it is worth trying to carole this down and repair this as it creates a foreign material or more likely a source of infection. I discussed this with her today. She is in agreement. We will continue to follow this. Continue IV antibiotics for the next 24-48 hours. Any orthopedic questions can be directed at [phone].
[2019-01-26] MEDS: CEFEPIME 1,000 MG in SYRINGE 0 ML IV SCH (05:51)
[2019-01-26] MEDS: hydroCHLOROthiazide 25 MG TAB PO SCH (08:39)
--- NOTE | 2019-01-26 08:41 | Progress Note ---
DATE: 01/26/2019 SUBJECTIVE: A 63-year-old female admitted with left-hand infection after a knife laceration about 12 days ago. She is doing better this morning. We took the stitches out last night and get a little bit of purulent drainage out. She has been soaking it. Swelling is improved and pain is improved. OBJECTIVE: VITAL SIGNS: Temperature is 36.6. Vital signs stable. EXTREMITIES: Examination of left hand reveals less overall swelling and a little bit less redness of her hand. Still some swelling on the palmar side. I applied some pressure and there is no purulent drainage visible today. She can nearly make a full fist. She is neurologically stable. She continues to have decreased sensation on the ulnar side of her index finger. Culture results are growing staph. Sensitivities are pending. ASSESSMENT: A 63-year-old female status post left hand knife laceration with underlying infection. It does look clinically improved today. PLAN: We are going to continue IV antibiotics today and soaking it 3 times a day with 1/3rd saline, 1/3rd hydrogen peroxide, 1/3rd betadine. Most likely this will continue to improve and I think she can probably be discharged tomorrow on oral antibiotics. We will need to check in the morning. We will have to make sure the cultures are sensitive to whatever antibiotics she is on p.o. I do not think she is going to need any surgical treatment. Any orthopedic questions can be directed to me at [phone].
[2019-01-26] MEDS ORDERED: VANCOMYCIN TROUGH ONE (09:30)
[2019-01-26 09:40] LABS: Basophils # (auto) 0.05 K/uL (0-0.2); Eosinophils # (auto) 0.17 K/uL (0-0.5); Eosinophils % (auto) 3.3 %; Hematocrit (blood only) 40.8 % (37-47); Immature Granulocytes # (auto) 0.01 K/uL (0.00-0.02); Immature Granulocytes % (auto) 0.2 %; Lymphocytes # (auto) 1.44 K/uL (1.2-3.4); Lymphocytes % (auto) 28.3 %; Mean Corpuscular Hgb Conc 36.8 g/dL (32-36); Mean Corpuscular Volume 86.1 fL (80-100); Mean Platelet Volume 10.8 fL (7.4-10.4); Monocytes % (auto) 3.9 %; Neutrophils # (auto) 3.22 K/uL (1.4-6.5); Neutrophils % (auto) 63.3 %; Platelet Count 238 K/uL (130-400); RDW Coefficient of Variation 12.7 % (11.5-14.5); RDW Standard Deviation 40.5 fL (36.4-46.3); Red Blood Count 4.74 M/uL (4.2-5.4); White Blood Count 5.09 K/uL (4.8-10.8)
[2019-01-26] MEDS: VANCOMYCIN HCL 750 MG in SODIUM CHLORIDE 0.9% 250 ML IV SCH (10:00)
[2019-01-26 10:01] LABS: BUN Creatinine Ratio 23.7 (10-20); Calcium 9.2 mg/dl (8.5-10.1); Creatinine Clr Calc Pharmacy 61.8 ml/min; Est GFR (African American) 102.6; Est GFR (Non-African American) 88.5; Potassium 3.7 mmol/L (3.5-5.1)
[2019-01-26] MEDS: LACTOBACILLUS ACIDOPHILUS (FLORANEX) TAB PO SCH ×2 (11:59→17:59)
[2019-01-26] MEDS ORDERED: cefTRIAXone SODIUM 1,000 MG in DEXTROSE 5% 50 ML IV SCH (16:00)
[2019-01-26] MEDS: ESTROGENS, CONJUGATED 0.3 MG TAB PO SCH (20:55)
--- NOTE | 2019-01-26 21:29 | Hospitalist Progress Note ---
Date of Service January 26, 2019 Assessment & Plan (1) Cellulitis of hand: LEFT HAND. improving nicely. 2nd to MSSA. stop cefepime and vanco. change to rocephin daily. keflex at d/c. warm soaks TID appreciate ortho consult (2) Wound infection, posttraumatic: see above in "cellulitis" (3) Laceration: left hand, webspace of 2nd/3rd digits. with superimposed infection now. and digital nerve injury. appreciate ortho consult. warm soaks. abx. hopefully home tomorrow. Subjective pt's hand feeling much better less swelling no pain getting occasional purulent material out from wound Review of Systems Constitutional: no fever and no chills Gastrointestinal: no diarrhea/loose stools Physical Exam Constitutional: well developed and well nourished; no acute distress and not ill appearing Respiratory: normal respiratory effort, lungs clear to auscultation Cardiovascular: RRR, no murmur, no edema Heart Sounds: normal S1 and normal S2 Vessels: posterior tibial pulses present and dorsalis pedis pulses present; no JVD radial pulse left hand 2+ Musculoskeletal: left hand - swelling dorsum of hand MUCH BETTER today; open wound between 2nd/3rd digits stable; pt was actively soaking the hand during the visit Results & Data Vital Signs (Past 12 Hours) Vital Signs Temp Pulse Resp BP Pulse Ox 01/26/19 15:00 36.6 C 69 16 147/81 H 95 Laboratory Results wound cx, left hand - MSSA Laboratory Results - last 24 hr 01/26/19 01/26/19 01/26/19 09:27 09:27 09:27 WBC 5.09 RBC 4.74 Hgb 15.0 Hct 40.8 MCV 86.1 MCH 31.6 MCHC 36.8 H RDW Std Deviation 40.5 RDW Coeff of Dc 12.7 Plt Count 238 MPV 10.8 H Immature Gran % (Auto) 0.2 Neut % (Auto) 63.3 Lymph % (Auto) 28.3 [place] % (Auto) 3.9 Eos % (Auto) 3.3 Baso % (Auto) 1.0 Immature Gran # (Auto) 0.01 Neut # (Auto) 3.22 Lymph # (Auto) 1.44 [place] # (Auto) 0.20 Eos # (Auto) 0.17 Baso # (Auto) 0.05 Sodium 143 Potassium 3.7 Chloride 110 H Carbon Dioxide 28 Anion Gap 5.0 BUN 17 Creatinine 0.72 Est Cr Clr Drug Dosing 61.8 Est GFR ( Amer) 102.6 Est GFR (Non-Af Amer) 88.5 BUN/Creatinine Ratio 23.7 H Glucose 134 H Calcium 9.2 Vancomycin Trough Hepatitis C Ab Screen Neg 01/26/19 09:27 WBC RBC Hgb Hct MCV MCH MCHC RDW Std Deviation RDW Coeff of Dc Plt Count MPV Immature Gran % (Auto) Neut % (Auto) Lymph % (Auto) [place] % (Auto) Eos % (Auto) Baso % (Auto) Immature Gran # (Auto) Neut # (Auto) Lymph # (Auto) [place] # (Auto) Eos # (Auto) Baso # (Auto) Sodium Potassium Chloride Carbon Dioxide Anion Gap BUN Creatinine Est Cr Clr Drug Dosing Est GFR ( Amer) Est GFR (Non-Af Amer) BUN/Creatinine Ratio Glucose Calcium Vancomycin Trough 10.7 Hepatitis C Ab Screen
[2019-01-27 06:33] LABS: Basophils # (auto) 0.04 K/uL (0-0.2); Basophils % (auto) 0.8 %; Eosinophils # (auto) 0.21 K/uL (0-0.5); Hemoglobin 13.3 g/dL (12.0-16.0); Immature Granulocytes # (auto) 0.02 K/uL (0.00-0.02); Immature Granulocytes % (auto) 0.4 %; Lymphocytes # (auto) 1.72 K/uL (1.2-3.4); Lymphocytes % (auto) 32.7 %; Mean Corpuscular Hgb Conc 36.9 g/dL (32-36); Mean Corpuscular Volume 85.5 fL (80-100); Monocytes # (auto) 0.31 K/uL (0.11-0.59); Monocytes % (auto) 5.9 %; Neutrophils # (auto) 2.96 K/uL (1.4-6.5); Neutrophils % (auto) 56.2 %; Platelet Count 218 K/uL (130-400); RDW Coefficient of Variation 12.8 % (11.5-14.5); RDW Standard Deviation 39.7 fL (36.4-46.3); Red Blood Count 4.21 M/uL (4.2-5.4); White Blood Count 5.26 K/uL (4.8-10.8)
[2019-01-27 07:10] LABS: BUN Creatinine Ratio 31.1 (10-20); Calcium 8.6 mg/dl (8.5-10.1); Creatinine Clr Calc Pharmacy 65.4 ml/min; Est GFR (African American) 107.1; Est GFR (Non-African American) 92.4; Potassium 3.9 mmol/L (3.5-5.1)
[2019-01-27] MEDS: LACTOBACILLUS ACIDOPHILUS (FLORANEX) TAB PO SCH (07:46)
[2019-01-27] MEDS: hydroCHLOROthiazide 25 MG TAB PO SCH (07:47)
[2019-01-27 07:52] VITALS: PULSE 79; TEMP 97.9; O2SAT 96
--- NOTE | 2019-01-27 12:09 | Progress Note ---
DATE: 01/27/2019 SUBJECTIVE: A 63-year-old female admitted with a left hand infection from a knife wound. She has made significant improvement over the past 24 hours. Really not much pain. She is much better able to move her hand. No further pus or drainage. She continues to describe some numbness in her index finger. OBJECTIVE: VITAL SIGNS: Temperature 36.6. Vital signs stable. GENERAL: Shows a pleasant, middle-aged female. She is sitting up on her bed and looks quite comfortable. EXTREMITIES: Examination of left hand reveals dorsal and palmar wounds showed both to be healing. There has been a little separation of the palmar wound, but it is healing. Little bit of thickening in the subcutaneous tissues. There is no palpable or expressible pus. She can essentially make a full fist and fully extend her fingers. Cellulitis and swelling is markedly resolved and almost normal. She continues to have numbness in the ulnar side of her index finger. MICROBIOLOGY RESULTS: Culture from the wound was growing methicillin-sensitive Staph aureus. ASSESSMENT: A 63-year-old female about 2 weeks out from a left hand knife wound with an infection which is improving with suture removal. There is no other apparent pus. Her clinical exam is markedly improved. PLAN: At this point, we would recommend she be converted from the IV to p.o. antibiotics. She will need 10 days of oral antibiotics. She can use her hand normally. She should wash it 4-5 times a day. Any questions can be directed to me at [phone]. I do not need to followup unless she is having problems. She should be able to stop the antibiotics after 10 days. She does not need any pain medicines.
[2019-01-27 12:58] VITALS: BP 116/72
--- NOTE | 2019-01-31 11:41 | Discharge Summary ---
Date of Service date of admission - January 25, 2019 date of discharge - January 27, 2019 Admission HPI Per Admitting Provider 63 yo female with HTN and GERD who was recently treated for a left hand laceration on 01/14/2019 in the [facility] ED. She had been cutting an avocado and suffered a deep laceration to the left hand with a knife. Patient received 5-0 nylon sutures x 3 in addition to Adacel injection. She was not sent home on antibiotics. Patient presented on day of admission with suspected infection of the laceration. Patient reported worsening pain, redness, and swelling of the wound. She also reported numbness and tingling of the the left index finger and middle finger. She denied fever or chills. In the ED, patient was afebrile without leukocytosis. While suture material was being removed green purulent drainage was observed by the ED attending. She was given IV NS bolus, Vancomycin and Unasyn in ED. Principal Diagnosis left hand wound infection 2nd to MSSA - resolving Discharge Exam Constitutional well developed and well nourished; no acute distress and not ill appearing Respiratory normal respiratory effort, lungs clear to auscultation Cardiovascular RRR, no murmur, no edema Heart Sounds: normal S1 and normal S2 Vessels: posterior tibial pulses present and dorsalis pedis pulses present; no JVD Gastrointestinal (Abdomen) normal bowel sounds, soft, nontender, no hepatosplenomegaly Skin well-healing laceration/wound on palmar aspect of left hand near the webspace of digits 2 and 3; no drainage; minimal swelling over this region; minimal swelling over dorsum of land Neurologic left 2nd digit - numbness lateral aspect to light touch; 3rd digit - numbness to medial aspect to light touch Discharge Data Allergies Allergy/AdvReac Type Severity Reaction Status Date / Time methadone AdvReac Severe "UNSURE, Verified 01/24/19 21:06 COULD NOT WALK" codeine AdvReac Intermediate GI PAIN Verified 01/24/19 21:06 Consultations Orthopedics - Eliezer Vance MD Ordered Studies MRI left hand: IMPRESSION: 1. No evidence for osteomyelitis within the left hand. 2. Edema and enhancement within the soft tissues of the left hand deep to the wound consistent with cellulitis. Associated 7 mm T2 hyperintense focus with mild peripheral enhancement which suggests a tiny abscess located along the p almar aspect of the bases of the second and third proximal phalanges. Hospital Course (1) Cellulitis of hand: LEFT HAND. Improved nicely with soaking the left hand and IV antibiotic therapy. Deep culture from the wound grew methicillin-sensitive staph aureus. She was changed to keflex 500mg TID x 10 days. MRI of the left hand failed to show any osteomyelitis or tenosynoviitis. She was seen by Dr. Eliezer Vance from orthopedics who advised against any surgical intervention at this time. All sutures were removed from the wound prior to discharge. She should follow-up with her PCP within 3 days for recheck of the hand and with Dr. Vnace on an as needed basis. (2) Wound infection, posttraumatic: see above in "cellulitis" (3) Laceration: left hand, webspace of 2nd/3rd digits. with superimposed infection - see above. suffered digital nerve injury to the 2nd/3rd digits. no surgical intervention recommended for the nerve injury. she is UTD with her tetanus booster. all suture material has been removed from the hand. Total Time Total Time Spent Total Time Spent (In Minutes): 25 Total Time Includes: Examination of the Patient, Discharge Planning, Medication Reconciliation and Communication With Other Providers Discharge Plan Discharge Items Patient Disposition: Home - Self-Care Reason For Visit: WOUND INFECTION of left hand Discharge Diagnosis: wound infection of left hand - improving Discharge Goals: Decrease discomfort and Therapeutic intervention Activity: Resume your previous activity Activity Comment: just avoid activities (gardening, etc) that could contaminate your wound Bathing: No limitations Non-emergency contact: Primary Care Provider and Surgeon Call non-emergency contact if: you have any medication questions, your symptoms worsen, your temperature is above 100.5, your wound has increased redness, your wound has increased drainage and your wound pain has increased Follow-up/Referrals: Nicolas Bhat MD [Primary Care Provider] - 02/03/19 2:00 pm (follow up appointment with your primary care physician) Eliezer Vance MD [Surgeon] - (may follow-up as needed with Dr. Vance for any left hand concerns) Diet: Regular Addtl Provider Instructions: From lili Marcusist- You were treated for a left hand wound infection with IV antibiotics. Your MRI of the hand did NOT show infection of any bone, joint, or tendon. It demonstrated a very tiny abscess near the original site of the cut. You were seen by Dr Vance who recommended soaking the hand and continued use of antibiotics; surgery was not advised. Your culture grew staph aureus - a common bacterium that causes skin infection. It was NOT "MRSA" (resistant staph). Because of the extensive cut from the knife you suffered digital nerve damage to the 2nd and 3rd fingers. At this time we recommend - 1. cephalexin three times a day for 10 days; start this TONIGHT. 2. probiotics once daily for 10 days. Start this today. 3. good hand-washing at least 4 times a day for the next several days. 4. ok to take tylenol and/or your anti-inflammatory for any pain or discomfort. Follow-up -- see your family doctor within 3-5 days. Return to [facility] if -- * you have fevers over 100.5 degrees * you see worsening redness, swelling or drainage from the left hand * you have worsening numbness or loss of function of the left hand * you develop severe diarrhea * any other concerns Prescriptions: New cephalexin [Keflex] 500 mg capsule 500 mg PO TID 10 Days Qty: 30 RF: 0 Saccharomyces boulardii 250 mg capsule 250 mg PO DAILY 10 Days Qty: 10 RF: 0 Continued hydrochlorothiazide 25 mg Tablet 25 mg PO DAILY RF: 0 Premarin 0.3 mg Tablet 0.3 mg PO HS RF: 0 cholecalciferol (vitamin D3) [Vitamin D3] 2,000 unit Capsule 2,000 unit PO DAILY RF: 0 Theralith XR 3.75-45-45-49.5 mg Tablet Extended Release 2 tab PO BID RF: 0 Unknown Anti Inflammatory Med 1 dose PO DIRECTED RF: 0 Stand-Alone Forms: [facility] Discharge Orders: Discharge Order (Routine); Ordered 01/27/19 Ordered By: Farrukh Nick Admission Data Admit Date/Time: 01/25/19 14:37 Attending Provider: Farrukh Nick Admit Provider: Zane Vargas Primary Care Provider: Nicolas Bhat Other Providers: Zane Vargas ; Eliezer Vance Service: Medical Other Interventions: Discharge Summary Assessment (RN) Last Done: 01/27/19 12:57 Pending Studies at Discharge: No DC Date/Time DO NOT enter until pt leaves facility: 01/27/19 13:29
== END 2019-01-27 13:29 | disposition home or self-care (01) | DRG 603 ==
LOC: ED 19:52 → 4E 19:52 → SUATTDRO 01-25 01:19 → 4E 01-25 01:58

== ENCOUNTER 2023-05-21 06:56 | Observation (INO) ==
--- NOTE | 2023-04-29 19:50 | PAT Medication Instructions ---
Medication Instructions Date of Service April 29, 2023 Home Medications Medication Instructions Recorded Wheeled Walker #1 ea 09/16/22 amoxicillin 500 mg tablet 2,000 mg PO ONCE #4 tabs 01/15/23 hydrochlorothiazide 50 mg tablet 50 mg PO QAM #90 tabs 03/09/23 meloxicam 15 mg tablet 15 mg PO QAM PRN Pain #30 tabs 04/21/23 cholecalciferol (vitamin D3) 50 mcg (2,000 unit) capsule (Vitamin D3) 2,000 unit PO HS conjugated estrogens 0.3 mg tablet (Premarin) 0.3 mg PO HS vit B6-mag cit,ox-potassium cit 3.75 mg-45 mg-45 mg-49.5 mg tablet ER (Theralith XR) 2 tab PO BID amoxicillin 500 mg tablet 2,000 mg PO ONCE acetaminophen 500 mg tablet (Tylenol Extra Strength) 500 mg PO Q6H PRN Pain hydrochlorothiazide 50 mg tablet 50 mg PO QAM meloxicam 15 mg tablet 15 mg PO QAM PRN Pain Continue as directed amoxicillin 500 mg tablet 2,000 mg PO ONCE (if needed) ASK your surgeon for instructions meloxicam 15 mg tablet 15 mg PO QAM PRN Pain ASK your prescriber and surgeon conjugated estrogens 0.3 mg tablet (Premarin) 0.3 mg PO HS DO NOT take the morning of surgery vit B6-mag cit,ox-potassium cit 3.75 mg-45 mg-45 mg-49.5 mg tablet ER (Theralith XR) 2 tab PO BID Take morning of surgery With a small sip of water, OTHERWISE NOTHING TO EAT OR DRINK AFTER MIDNIGHT: acetaminophen 500 mg tablet (Tylenol Extra Strength) 500 mg PO Q6H PRN Pain (if needed) Take evening before surgery cholecalciferol (vitamin D3) 50 mcg (2,000 unit) capsule (Vitamin D3) 2,000 unit PO HS vit B6-mag cit,ox-potassium cit 3.75 mg-45 mg-45 mg-49.5 mg tablet ER (Theralith XR) 2 tab PO BID acetaminophen 500 mg tablet (Tylenol Extra Strength) 500 mg PO Q6H PRN Pain (if needed) hydrochlorothiazide 50 mg tablet 50 mg PO QAM Other Notes If you have any questions please call us at [phone] or [phone] or [phone] or [phone]
--- NOTE | 2023-05-04 12:00 | Anesthesiology Consultation ---
Date of Service May 04, 2023 Assessment & Plan (1) Encounter for pre-operative examination: Plan - R knee caution: pt states is s/p 7 months from R TKA and requests caution with knee movement/positioning. Marked on OR sheet. - patient requests sedation if possible by anesthesia prior to being taken care to OR as found that was beneficial experience with recent R TKA. She plans to discuss this with assigned anesthesiologist DOS. - pt clarified if today's visit was with anesthesia which I advised in f/u to initial introduction I am a PA with the anesthesia/PAT team. I offered a discussion with the anesthesiologist if patient preferred, she declined this expressing no additional questions/concerns. Chart Review Chart Review: Acceptable Risk for Surgery and Patient seen in Pre Admission Testing Teaching & Discussion Pre-Anesthesia Teaching/Discussion Notes: Instructed NPO after midnight before surgery, except medications with 15 cc of water. Medication instructions provided according to the PAT guidelines. History Surgery Operation Date: 05/21/23 11:15 Proposed Procedures p Posterior Colporrhaphy - Modesto Rosario MD Height/Weight Height: 5 ft Weight: 55.7 kg Allergies Allergy/AdvReac Type Severity Reaction Status Date / Time methadone AdvReac Severe "Unsure, Verified 04/29/23 10:50 could not walk" codeine AdvReac Intermediate GI pain Verified 04/29/23 10:50 trimethobenzamide AdvReac Unknown Hives Verified 04/29/23 10:50 [From Tigan] Medications Home Medications Medication Instructions Recorded Confirmed Last Taken cholecalciferol (vitamin D3) 50 2,000 unit PO HS 01/24/19 04/29/23 10/07/22 20:00 mcg (2,000 unit) capsule (Vitamin D3) conjugated estrogens 0.3 mg tablet 0.3 mg PO HS 01/24/19 04/29/23 10/08/22 22:00 (Premarin) vit B6-mag cit,ox-potassium cit 2 tab PO BID 08/14/20 04/29/23 10/08/22 07:00 3.75 mg-45 mg-45 mg-49.5 mg tablet ER (Theralith XR) Wheeled Walker #1 ea 09/16/22 12/02/22 Unknown amoxicillin 500 mg tablet 2,000 mg PO ONCE #4 tabs 01/15/23 04/29/23 Unknown acetaminophen 500 mg tablet 500 mg PO Q6H PRN Pain 03/09/23 04/29/23 Unknown (Tylenol Extra Strength) hydrochlorothiazide 50 mg tablet 50 mg PO QAM #90 tabs 03/09/23 04/29/23 Unknown meloxicam 15 mg tablet 15 mg PO QAM PRN Pain #30 tabs 04/21/23 04/29/23 Unknown Additional Notes: Pt was instructed to not take hydrochlorothiazide day of surgery, this was also written on provided medication instructions. Past Medical History Medical History GERD (gastroesophageal reflux disease) rare, stable per pt History of COVID-19 01/2022, sore throat/head cold > denies hospitalization > resolved History of flexible sigmoidoscopy History of melanoma R ankle, s/p excision History of shingles April-May 2022, Post-herpetic neuralgia episodes Kidney stone hx of surgery and currently has a "a lot small ones at this time in both kidneys." Follows with Dr Vidal routinely. Meningitis spinal , hx ruptured discs had stereotactic radiofrequency lesioning procedure L3/L4/L5 Vertigo chronic, states resolves with PT Patient denies h/o stroke, seizures, heart attack, heart failure, DM, HTN, blood clots or blood transfusions. Exercise / Class Metabolic Activity III < 4 Walking/Shop/Light housework (denies chest discomfort or shortness of breath with usual activities) Past Family History Family History Other Diabetes Hypertension No pertinent family history in first degree relatives Past Surgical History Surgical History H/O lymph node biopsy (~1975) right groin (benign) H/O ovarian cystectomy H/O removal of cyst right thigh tumor removal (benign) History of back surgery hx ruptured discs had stereotactic radiofrequency lesioning procedure L3/L4/L5 History of cataract surgery bilateral History of dilatation and curettage (~1977) History of herniorrhaphy (~1981) and bilateral salpingectomy History of laparoscopy (~03/1991) ruptured adhesions History of total right knee replacement (TKR) (~09/2022) Hx of cholecystectomy "wrapped with adhesions" Hx of colonoscopy Hx of lithotripsy x2 Hx of melanoma excision Right lower leg (stage I) Hx of total hysterectomy with removal of both tubes and ovaries Hx of umbilical hernia repair S/P right knee arthroscopy Past Anesthesia History No Hx of Anesthesia Complications and No Family Hx of Anesthesia Complications History of PONV No Hx of PONV and Hx of Motion Sickness Social History Smoking Status: Never smoker Do You Dip or Chew Tobacco: No Hx Alcohol Use: No Hx Substance Use: No substance use type: does not use Review of Systems Patient denies chest pain, shortness of breath, dyspnea on exertion, snoring, witnessed apneas, fever, chills, cough, wheezing, or palpitations. Physical Exam Vital Signs Vitals BP 126/77 P 70 TEMP 97.8 SP02 96% on RA RESP 18 Physical Patient resting comfortably in chair in NAD, alert and oriented, responding appropriately throughout visit Full cervical extension range of motion without pain TMD 3.5 finger breadths Mallampati Score 2 Dentition: implants-2 upper right and 1 upper left and multiple crowns, denies chipped or loose teeth or bridges Lungs: normal respiratory effort. Good air movement, clear throughout to auscultation, no adventitious breath sounds Cardiac: regular rate and rhythm, no murmurs noted Carotid arteries: negative bruit bilat Lab Results Anesthesia Preop Results Results Anesthesia Widget: WBC 5.62 K/ul (4.8-10.8) 05/04/23 Hgb 14.6 g/dl (12.0-16.0) 05/04/23 Hct 41.1 % (37.0-47.0) 05/04/23 Plt 258 K/uL (130-400) 05/04/23 Na 140 mmol/L (136-145) 05/04/23 K 4.1 mmol/L (3.5-5.1) 05/04/23 Cl 103 mmol/L (98-107) 05/04/23 CO2 31 mmol/L (21-32) 05/04/23 BUN 20 mg/dl (6-23) 05/04/23 Creat 0.65 mg/dl (0.6-1.2) 05/04/23 Glucose Level 90 mg/dl (70-99(Fasting)) 05/04/23 PT 10.7 Seconds (9.0-12.0) 05/04/23 PTT 26.5 Seconds (21.0-31.0) 05/04/23 INR 1.0 (0.9-1.1) 05/04/23 Blood Type B Positive 05/04/23 Antibody Screen NEGATIVE 05/04/23 Testing Electrocardiogram Date: 07/09/22 NSR, rate 70 bpm Chest X-Ray Date: 09/28/22 No acute process Stress Test Date: 06/26/19 Exercise METS 9.7 MPHR 109% Normal exercise echo without evidence of inducible ischemia Normal LV wall motion EF 60-65% Grade I diastolic dysfunction Other Testing Abdomen pelvis CT 05/22/22 1. Bilateral nephrolithiasis. No ureteral stones. No hydronephrosis. 2. No definite bowel wall thickening or obstruction. 3. Normal appendix. 4. Prior cholecystectomy.
--- NOTE | 2023-05-04 12:40 | History & Physical Report ---
Date of Service May 04, 2023 Assessment & Plan (1) Rectocele: Plan: Posterior colporrhaphy History of Present Illness Chief Complaint: Mass protruding from the vagina on coughing or sneezing Primary Care Provider: EUSEBIA Sanchez Patient is a 68-year-old 4 para 4. Her general health is complicated by endometriosis and kidney stones. She has experienced 2 lithotripsies. Total abdominal hysterectomy with bilateral salpingo-oophorectomy at age 37 for endometriosis. She complains of a mass protruding from her vaginal opening on coughing or sneezing. Symptoms have been present for over 6 months. Symptoms have been getting progressively worse. She was placed on Premarin vaginal cream for 2 months. She is presently being scheduled for a posterior repair. Allergies Allergy/AdvReac Type Severity Reaction Status Date / Time methadone AdvReac Severe "Unsure, Verified 04/29/23 10:50 could not walk" codeine AdvReac Intermediate GI pain Verified 04/29/23 10:50 trimethobenzamide AdvReac Unknown Hives Verified 04/29/23 10:50 [From [facility]] Home Medications Medication Instructions Recorded Confirmed Type cholecalciferol (vitamin D3) 50 2,000 unit PO HS 01/24/19 04/29/23 History mcg (2,000 unit) capsule (Vitamin D3) conjugated estrogens 0.3 mg tablet 0.3 mg PO HS 01/24/19 04/29/23 History (Premarin) vit B6-mag cit,ox-potassium cit 2 tab PO BID 08/14/20 04/29/23 History 3.75 mg-45 mg-45 mg-49.5 mg tablet ER (Theralith XR) Wheeled Walker #1 ea 09/16/22 12/02/22 Rx amoxicillin 500 mg tablet 2,000 mg PO ONCE #4 tabs 01/15/23 04/29/23 Rx acetaminophen 500 mg tablet 500 mg PO Q6H PRN Pain 03/09/23 04/29/23 History (Tylenol Extra Strength) hydrochlorothiazide 50 mg tablet 50 mg PO QAM #90 tabs 03/09/23 04/29/23 Rx meloxicam 15 mg tablet 15 mg PO QAM PRN Pain #30 tabs 04/21/23 04/29/23 Rx Past Med/Surg History Medical History GERD (gastroesophageal reflux disease) rare, stable per pt History of COVID-19 01/2022, sore throat/head cold > denies hospitalization > resolved History of flexible sigmoidoscopy History of melanoma R ankle, s/p excision History of shingles April-May 2022, Post-herpetic neuralgia episodes Kidney stone hx of surgery and currently has a "a lot small ones at this time in both kidneys." Follows with Dr Vidal routinely. Meningitis spinal 1990s, hx ruptured discs had stereotactic radiofrequency lesioning procedure L3/L4/L5 Vertigo chronic, states resolves with PT Surgical History H/O lymph node biopsy (~1975) right groin (benign) H/O ovarian cystectomy H/O removal of cyst right thigh tumor removal (benign) History of back surgery hx ruptured discs had stereotactic radiofrequency lesioning procedure L3/L4/L5 History of cataract surgery bilateral History of dilatation and curettage (~1977) History of herniorrhaphy (~1981) and bilateral salpingectomy History of laparoscopy (~03/1991) ruptured adhesions History of total right knee replacement (TKR) (~09/2022) Hx of cholecystectomy "wrapped with adhesions" Hx of colonoscopy Hx of lithotripsy x2 Hx of melanoma excision Right lower leg (stage I) Hx of total hysterectomy with removal of both tubes and ovaries Hx of umbilical hernia repair S/P right knee arthroscopy Family History Other Diabetes Hypertension No pertinent family history in first degree relatives Social History Smoking Status: Never smoker Second Hand Exposure: No; Do You Dip or Chew Tobacco: No; Hx Alcohol Use: No Hx Substance Use: No Preferred Language: Slovenian Communication Ability: Effective 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 Heart had a regular rhythm S1 and S2 were normal. Lungs were clear to auscultation and percussion. Abdomen was soft and nontender. Well-healed Pfannenstiel incision was noted. Pelvic exam revealed good support of the vaginal cuff. A second-degree rectocele which protruded on coughing or sneezing. Good support of the bladder neck. No calf tenderness was noted.
[~2023-05-21 06:56] MED LIST changes: +LACTATED RINGER'S 1,000 ML IV SCH; -OSEL75CA12 PO; -PRM/3 PO; +cefOXitin 2,000 MG in DEXTROSE 5% 50 ML IV SCH
[2023-05-21] MEDS ORDERED: PROPOFOL IV EMULSION 10 MG/ML 20 ML VIAL IV ONE (07:35)
[2023-05-21] MEDS ORDERED: fentaNYL citrate PF 100 MCG/2 ML VIAL ONE ×2 (07:35→09:22)
[2023-05-21] MEDS ORDERED: LIDOCAINE 2% 2 ML VIAL/AMP(20MG/ML) INFIL ONE (07:35)
[2023-05-21] MEDS ORDERED: MIDAZOLAM HCL 1 MG/ML 2ML VIAL ONE (07:35)
[2023-05-21] MEDS ORDERED: PROMETHAZINE HCL 12.5 MG in SODIUM CHLORIDE 0.9% 50 ML IV PRN (07:59)
[2023-05-21] MEDS ORDERED: ePHEDrine sulfate 50 MG/ML AMP IV PRN (07:59)
[2023-05-21] MEDS ORDERED: ATROPINE SULFATE 0.1 MG/ML 10ML SYR IV PRN (07:59)
[2023-05-21] MEDS ORDERED: HYDROmorphone INJ 2 MG/ML SYR/VIAL IV PRN (07:59)
--- NOTE | 2023-05-21 08:29 | History & Physical Bridge Note ---
Date of Service May 21, 2023 History & Physical Bridge Note I have examined the patient, reviewed the History & Physical and in the interval since the performance of the History & Physical I have noted the following changes of clinical significance: no changes noted
[2023-05-21] MEDS ORDERED: LIDOCAINE 1%/EPINEPHRINE 1:100,000 20 ML VIAL ONE ×2 (08:42→09:39)
[2023-05-21] MEDS ORDERED: NEOMYCIN/POLYMYX/BACITR OINT 15 GM TUBE ONE (08:48)
[2023-05-21] MEDS ORDERED: MoRPHine SULFATE PF 1 MG/ML 10 ML AMP/VIAL ONE (08:53)
[2023-05-21] MEDS ORDERED: PREMARIN VAG CRM 14 APPLN/30 GM TUBE ONE (09:02)
[2023-05-21] MEDS ORDERED: DexMEDEtomidine HCL IV 100 MCG/ML VIAL IV ONE (09:22)
[2023-05-21] MEDS ORDERED: DEXAMETHASONE SOD INJ 4 MG/ML VIAL ONE (09:34)
[2023-05-21] MEDS ORDERED: GLYCOPYRROLATE 0.2 MG/ML VIAL ONE (09:34)
[2023-05-21] MEDS ORDERED: ONDANSETRON INJ 2 MG/ML 2 ML VIAL ONE (09:34)
[2023-05-21] MEDS ORDERED: NEOSTIGMINE METHYLSULFATE 1 MG/ML 10ML VIAL ONE (09:34)
[2023-05-21] MEDS ORDERED: ROCURONIUM BROMIDE 10 MG/ML 5 ML VIAL IV ONE (09:34)
[2023-05-21] MEDS ORDERED: HYDROmorphone INJ 1 MG/ML SYRINGE ONE (09:35)
--- NOTE | 2023-05-21 11:08 | Post Operative Brief Note ---
Immediate Post Op Note v1 Date of Surgery May 21, 2023 Pre & Post Diagnosis Operation Date: 05/21/23 08:30 Pre-Op Diagnosis: Second Degree Rectocele Post-Op Diagnosis: Second Degree Rectocele I identified the patient and participated in the time-out.: Yes Procedure Operation Date: 05/21/23 08:30 Actual Procedures p Posterior Colporrhaphy(Not Applicable) - Modesto Rosario MD Surgeon Modesto Rosario MD Obiee Consultant none Estimated Blood Loss 30 Findings Consistent with Post-Op Diagnosis second to third rectocele Drains Becerril Catheter and Other (straight cath: 100ml clean, yellow urine) Anesthesia Type General Complications none
--- NOTE | 2023-05-21 11:16 | Operative Report ---
Post Operative Report Pre & Post Diagnosis Operation Date: 05/21/23 08:30 Pre-Op Diagnosis: Second Degree Rectocele Post-Op Diagnosis: Second Degree Rectocele I identified the patient and participated in the time-out.: Yes Procedure Operation Date: 05/21/23 08:30 Actual Procedures p Posterior Colporrhaphy(Not Applicable) - Modesto Rosario MD Surgeon Modesto Rosario MD Solution Professional none Estimated Blood Loss 30 Findings Consistent with Post-Op Diagnosis second to third degree rectocele Specimens vaginal mucosa Anesthesia Type General Complications none Description of Procedure Patient was brought to the OR correctly identified by armband and conversation. She was placed on the OR table in stirrups. Perineum and vagina were painted with a Betadine solution. The bladder was emptied with a metal catheter. Perineum and vagina were draped in usual sterile fashion. The vaginal cuff was identified. The perineum and posterior vagina was infiltrated with local with epinephrine right up to the vaginal cuff and wedge shaped portion of the perineal skin was excised. The rectovaginal space was dissected right up to the vaginal cuff. Dissection was carried out laterally. Dissection was taken to the level of the uterosacral spines. A enronw-ms-vnagi suture of 0 Vicryl was placed at the top of the dissection and at the level of the uterosacral spines. Levator ani's were approximated with a suture. 4 additional blbiqo-re-sufca sutures were used to approximate the level of the levator ani muscles out to the vaginal opening. Excess vaginal mucosa was excised. The suture of heavy Vicryl was used to approximate the posterior vaginal mucosal defect with an interlocking sutures out to the hymenal ring. A deep suture was used to approximate the bulbocavernosus muscles and 2 additional sutures were used to approximate the perineal body. A running subcuticular Vicryl was used to approximate the perineal skin edges. Vaginal pack packing was now removed. Examination revealed a tight to finger accommodation with good vaginal length. The vagina was packed with 1 inch packing soaked in Premarin cream. Two thirds of the packing material was used to pack the vagina. A catheter was inserted into the bladder connected to gravity drainage. A rectal exam was used to ensure there were no stitches through the rectum. And there was a suture drain coming out the perineum which was cut at about a quarter of an inch. Patient tolerated the procedure well left the OR in good condition estimated blood loss was 30 mL. I attest to the content of the Intraoperative Record and any orders documented therein. Any exceptions are noted below.
[2023-05-21] MEDS ORDERED: bisacodyL 10 MG SUPP PR PRN (13:06)
[2023-05-21] MEDS ORDERED: MAGNESIUM HYDROXIDE SUSP 30 ML UDC PO PRN (13:06)
[2023-05-21] MEDS ORDERED: SENNA 8.6 MG TAB PO PRN (13:06)
[2023-05-21] MEDS ORDERED: KETOROLAC TROMETHAMINE 15 MG/ML VIAL IV PRN (13:06)
[2023-05-21] MEDS ORDERED: ONDANSETRON INJ 2 MG/ML 2 ML VIAL IV PRN (13:06)
[2023-05-21] MEDS ORDERED: MEPERIDINE HCL 50 MG/ML CARP IV PRN (13:06)
--- NOTE | 2023-05-21 13:18 | Anesthesiology Progress Note ---
Date of Service May 21, 2023 Anesthesia Post Procedure Vital Signs Vital Signs: Temp Pulse Pulse Resp BP Pulse Ox O2 Del Method 05/21/23 11:55 67 15 110/63 93 Nasal Cannula 05/21/23 11:25 87 19 115/65 99 Oxymask 05/21/23 11:45 36.6 C 81 16 117/62 96 Nasal Cannula 05/21/23 11:35 85 19 118/61 98 Nasal Cannula 05/21/23 11:15 89 19 122/69 100 Oxymask 05/21/23 11:08 36.5 C 96 H 14 109/62 100 Oxymask 05/21/23 07:32 36.5 C 86 18 152/77 H 99 Room Air O2 Flow Rate 05/21/23 11:55 05/21/23 11:25 1 05/21/23 11:45 05/21/23 11:35 1 05/21/23 11:15 3 05/21/23 11:08 5 05/21/23 07:32 Transfer of Care Handoff Completed per policy Notes Mental Status: alert / awake / arousable Patient Amnestic to Procedure: Yes Nausea / Vomiting: adequately controlled Pain: adequately controlled Airway Patency, RR, SpO2: stable & adequate BP & HR: stable & adequate Hydration State: stable & adequate Anesthetic Complications: no major complications apparent and Pt Satisfied with anesthetic care
[2023-05-21] MEDS: IBUPROFEN 600 MG TAB PO PRN (13:41)
[2023-05-21] MEDS: oxyCODONE/ACETAMINOPHEN 5mg/325mg TAB PO PRN ×2 (15:49→20:39)
[2023-05-22] MEDS: oxyCODONE/ACETAMINOPHEN 5mg/325mg TAB PO PRN ×4 (03:53→19:41)
[2023-05-22] MEDS: IBUPROFEN 600 MG TAB PO PRN ×4 (06:12→19:41)
[2023-05-22 06:25] LABS: Basophils # (auto) 0.03 K/uL (0.00-0.20); Basophils % (auto) 0.3 %; Eosinophils # (auto) 0.05 K/uL (0.00-0.50); Eosinophils % (auto) 0.5 %; Hematocrit (blood only) 34.3 % (37.0-47.0); Hemoglobin 12.6 g/dl (12.0-16.0); Immature Granulocytes # (auto) 0.03 K/uL (0.01-0.20); Immature Granulocytes % (auto) 0.3 %; Lymphocytes # (auto) 1.55 K/uL (1.20-3.40); Lymphocytes % (auto) 14.3 %; Mean Corpuscular Hemoglobin 31.2 pg (25.0-34.0); Mean Corpuscular Hgb Conc 36.7 g/dL (32.0-36.0); Mean Corpuscular Volume 84.9 fL (80.0-100.0); Mean Platelet Volume 11.3 fL (9.4-12.4); Monocytes # (auto) 0.75 K/uL (0.11-0.59); Monocytes % (auto) 6.9 %; Neutrophils # (auto) 8.44 K/uL (1.40-6.50); Neutrophils % (auto) 77.7 %; Platelet Count 230 K/uL (130-400); RDW Coefficient of Variation 12.1 % (11.5-14.5); RDW Standard Deviation 37.2 fL (36.4-46.3); Red Blood Count 4.04 M/uL (4.20-5.40); White Blood Count 10.85 K/ul (4.8-10.8)
[2023-05-22 06:52] LABS: Calcium 8.8 mg/dl (8.6-10.3); Creatinine Clr Calc Pharmacy 68.1 ml/min; Est GFR (African American) 110.3 ml/min; Est GFR (Non-African American) 95.1 ml/min; Potassium 3.9 mmol/L (3.5-5.1)
--- NOTE | 2023-05-22 09:22 | Obstetrical Progress Note ---
Date of Service May 22, 2023 Assessment & Plan Admission and Anticipated Discharge Date Admission Date: May 21, 2023 OB Progress Note abdomen soft and non tender no calf tenderness ambulating well vaginal bleeding scant hgb 12.6 Results & Data Vital Signs (Past 12 Hours) Vital Signs Temp Pulse Pulse Resp BP Pulse Ox O2 Del Method 05/22/23 08:00 36.6 C 75 18 116/69 96 Room Air 05/22/23 03:45 36.8 C 70 18 116/77 95 Room Air 05/21/23 23:00 36.5 C 65 18 129/71 98 Room Air
[2023-05-22] MEDS: hydroCHLOROthiazide 25 MG TAB PO SCH (13:06)
[2023-05-23] MEDS: IBUPROFEN 600 MG TAB PO PRN ×3 (03:15→12:48)
[2023-05-23] MEDS: oxyCODONE/ACETAMINOPHEN 5mg/325mg TAB PO PRN ×3 (03:16→12:47)
[2023-05-23 06:48] LABS: Basophils # (auto) 0.05 K/uL (0.00-0.20); Basophils % (auto) 0.6 %; Eosinophils # (auto) 0.14 K/uL (0.00-0.50); Eosinophils % (auto) 1.6 %; Hematocrit (blood only) 35.4 % (37.0-47.0); Hemoglobin 12.7 g/dl (12.0-16.0); Immature Granulocytes # (auto) 0.02 K/uL (0.01-0.20); Immature Granulocytes % (auto) 0.2 %; Lymphocytes # (auto) 1.61 K/uL (1.20-3.40); Lymphocytes % (auto) 18.8 %; Mean Corpuscular Hemoglobin 31.1 pg (25.0-34.0); Mean Corpuscular Hgb Conc 35.9 g/dL (32.0-36.0); Mean Corpuscular Volume 86.8 fL (80.0-100.0); Mean Platelet Volume 11.2 fL (9.4-12.4); Monocytes # (auto) 0.55 K/uL (0.11-0.59); Monocytes % (auto) 6.4 %; Neutrophils % (auto) 72.4 %; Platelet Count 209 K/uL (130-400); RDW Coefficient of Variation 12.3 % (11.5-14.5); RDW Standard Deviation 38.9 fL (36.4-46.3); Red Blood Count 4.08 M/uL (4.20-5.40); White Blood Count 8.57 K/ul (4.8-10.8)
[2023-05-23 06:59] LABS: BUN Creatinine Ratio 28.6 (10-20); Calcium 8.8 mg/dl (8.6-10.3); Creatinine Clr Calc Pharmacy 60.5 ml/min; Est GFR (African American) 106.1 ml/min; Est GFR (Non-African American) 91.5 ml/min; Potassium 3.8 mmol/L (3.5-5.1)
[2023-05-23] MEDS: hydroCHLOROthiazide 25 MG TAB PO SCH (08:18)
--- NOTE | 2023-05-23 08:41 | Obstetrical Progress Note ---
Date of Service May 23, 2023 Assessment & Plan Admission and Anticipated Discharge Date Admission Date: May 21, 2023 Subjective abdomen soft and non tender vaginal bleeding scant hgb 12.7 no calf tenderness ambulating well vaginal packing removed Results & Data Vital Signs (Past 12 Hours) Vital Signs Temp Pulse Resp BP Pulse Ox O2 Del Method 05/22/23 23:51 Room Air 05/22/23 23:51 36.9 C 73 18 108/66 96 Room Air
--- NOTE | 2023-05-23 08:47 | Discharge Summary ---
Date of Service May 23, 2023 Admission HPI Per Admitting Provider Patient is a 68-year-old 4 para 4. Her general health is complicated by endometriosis and kidney stones. She has experienced 2 lithotripsies. Total abdominal hysterectomy with bilateral salpingo-oophorectomy at age 37 for endometriosis. She complains of a mass protruding from her vaginal opening on coughing or sneezing. Symptoms have been present for over 6 months. Symptoms have been getting progressively worse. She was placed on Premarin vaginal cream for 2 months. She is presently being scheduled for a posterior repair. Discharge Data Procedures Performed Operation Date: 05/21/23 08:30 Actual Procedures p Posterior Colporrhaphy(Not Applicable) - Modesto Rosario MD Discharge Instructions Patient is 68-year-old 2 para 2 with symptoms of a mass bulging from her vagina on coughing or sneezing. She was diagnosed with a second to third-degree rectocele. Was on estrogen vaginal cream for several months prior to surgery. The day of admission she was taken to the OR where a posterior colporrhaphy was performed. Vaginal packing was placed along with a Becerril catheter. Postoperatively she remained afebrile. Vaginal bleeding was minimal. On the second postoperative day the vaginal packing was removed. Becerril catheter was removed. She was discharged with pain medications and instructions. She was not discharged until she could void on her own.
== END 2023-05-23 15:30 | disposition home or self-care (01) ==
LOC: ASU 06:56 → INTOOBSV 11:05 → 4E1 11:05
PROC: M.APREP (2023-05-21 08:30)
DX: N81.6 Rectocele; Z88.8 Allergy status to other drugs, medicaments and biological substances; Z79.899 Other long term (current) drug therapy; Z86.16 Personal history of COVID-19; Z96.651 Presence of right artificial knee joint; Z90.49 Acquired absence of other specified parts of digestive tract; Z87.442 Personal history of urinary calculi; N80.9 Endometriosis, unspecified; Z88.5 Allergy status to narcotic agent